=== PATIENT | female | born 1935 | race Caucasian/White ===

== ENCOUNTER → 2018-01-03 | Outpatient (CLI) | payer MEDICARE ==
[~2018-01-03] MED LIST: ALPRAZOLAM0.25 MG PO; AMBIEN10 MG PO; CARAFATE1 GM PO; CLONIDINE HCL0.1 MG PO; FLAGYL500 MG PO; LORAZEPAM2 MG PO; METOCLOPRAMIDE H5 MG PO; ULTRACET TABLE1 EACH PO; VITAMIN B COMPLEX; Z.0.FLAGYL500 MG PO; Z.0.LISINOPRIL20 MG PO; Z.0.NEXIUM40 MG PO; ZOFRAN ODT4 MG PO
--- NOTE | 2018-01-03 16:36 | Diagnostic Imaging Report ---
PROCEDURE:X-RAY RIGHT SHOULDER, COMPLETE COMPARISON:None. INDICATIONS:FALL, SATUR RIGHT SHOULDER PAIN FINDINGS: Mild osteopenia. No acute, displaced fracture or dislocation. No lytic or blastic lesion. No a.c. separation. Degenerative changes in the acromioclavicular joint. Glenohumeral joint is grossly unremarkable. Soft tissues are unremarkable. CONCLUSION: No acute abnormalities. Jacob Kim M.D. Dictated by: Jacob Kim M.D. on 01/03/2018 at 16:37 Electronically approved by: Jacob Kim M.D. on 01/03/2018 at 16:37
--- NOTE | 2018-01-03 16:40 | Diagnostic Imaging Report ---
Exams: Head and maxilla facial CTs without IV contrast History: Trauma, fall, hit head Comparison studies: None Technique: Axial images were obtained to the vertex and maxillofacial region. Coronal and sagittal images reconstructed from the axial data. Intravenous contrast: None Findings: Scalp: Small left paramedian frontal scalp hematoma. Bones: No fractures, blastic or lytic lesions. Brain sulci: Mildly prominent. Ventricles: Mild compensatory dilatation. No hydrocephalus. Parenchyma: No mass, acute hemorrhage or acute or chronic cortical vascular insults. Subtle hypodensities in the supratentorial white matter are compatible with chronic small vessel ischemic changes. Sellar/suprasellar region: No abnormalities Craniocervical junction: Patent foramen magnum. No Chiari one malformation. Maxillofacial CT: Soft tissues: No abnormalities. Bones: No fractures or bony abnormalities. Orbits: Intraocular lens replacements related to previous cataract surgery. Globes intact. No intraconal or extraconal abnormalities. Paranasal sinuses: Small nonobstructing retention cysts in the right maxillary sinus. Included cervical spine: Moderately degenerated C5-C6 and C6-C7 discs. Likely canal degree of canal stenosis at C6-C7 due to disc osteophyte complex which indents the thecal sac (cannot further evaluate as the canal is outside the imaged [id number] on this exam). Multilevel facet arthrosis. Moderate foraminal stenosis on the right at C3-C4 and at C4-C5 due to uncovertebral facet arthrosis. Incidental findings: Atherosclerotic calcifications in the carotid siphons and intradural vertebral arteries. IMPRESSION: Head CT: 1. Small left frontal scalp hematoma without underlying fracture. 2. No acute intracranial abnormalities. 3. Mild generalized volume loss. 4. Mild chronic microvascular ischemic changes. Maxillofacial CT: 1. Small left frontal scalp hematoma as above. 2. No maxillofacial fractures. 3. Degenerative changes in the imaged cervical spine. Signed by: Dr. Toribio Lai M.D. on 01/03/2018 4:37 PM
== END ==
LOC: CT 15:13
PROVIDERS: ATTEND Internal Medicine
DX: S09.93XA Unspecified injury of face, initial encounter (principal); M25.511 Pain in right shoulder; W19.XXXA Unspecified fall, initial encounter
CPT/HCPCS: 70450; 70486

== ENCOUNTER 2019-06-23 05:40 | Observation (INO) | payer MEDICARE ==
[2019-06-20 15:50] LABS: BASOPHILS # (AUTO) 0.1 (0.0-0.1); BASOPHILS % 0.5 % (0.0-1.0); EOSINOPHILS # (AUTO) 0.1 (0.0-0.4); EOSINOPHILS % 0.9 % (0.0-6.0); HEMATOCRIT 47.7 % (34.2-44.1); HEMOGLOBIN 16.1 g/dL (12.0-16.0); LYMPHOCYTES # (AUTO) 3.1 (1.0-3.2); LYMPHOCYTES % 23.3 % (18.0-39.1); MEAN CORPUSCULAR HEMOGLOBIN 29.8 pg (28-32); MEAN CORPUSCULAR HGB CONC 33.8 g/dL (31-35); MEAN CORPUSCULAR VOLUME 88.3 fL (81-99); MONOCYTES # (AUTO) 0.8 (0.2-0.8); MONOCYTES % 5.9 % (4.4-11.3); NEUTROPHILS # (AUTO) 9.2 (2.1-6.9); NEUTROPHILS % 68.9 % (38.7-80.0); PLATELET COUNT 264 x10e3/uL (140-360); RED CELL DISTRIBUTION WIDTH 13.3 % (11.7-14.4)
--- NOTE | 2019-06-20 16:00 | Diagnostic Imaging Report ---
EXAMINATION: CHEST 2 VIEWS INDICATION: Pre-operative COMPARISON: None FINDINGS: LINES/TUBES:None LUNGS:The lungs are moderately inflated. No focal consolidation or pulmonary edema. 7 mm nodular opacity over the right midlung zone may represent a pulmonary nodule. PLEURA:No pleural effusion or pneumothorax. MEDIASTINUM:The cardiomediastinal silhouette appears normal in size and shape. Atherosclerotic calcifications of the thoracic aorta. BONES/SOFT TISSUES:No acute osseous injury. ABDOMEN:No free air under the diaphragm. IMPRESSION: No focal pneumonia or pulmonary edema. Chest CT is recommended on a nonurgent basis to further evaluate pulmonary nodule. Signed by: Linda Marc MD on 06/20/2019 3:57 PM
[~2019-06-23] VITALS: Ht 167.6 cm; Wt 78.5 kg
[~2019-06-23 05:40] MED LIST changes: +CYMBALTA30 MG PO; +DICYCLOMINE HCL20 MG PO; +FISH OIL 1,0001 EAC2 PO; +VITAMIN B-121000 MC2 IM; +VITAMIN D35000 UNIT PO
--- OUTSIDE RECORDS SUMMARY | 2019-06-23 05:48 | XMS REPORT ---
Author Author [facility] Address Unknown Phone Unavailable Care Team Providers Care Community Administrator Name Role Phone BILLY LYNN Unavailable Unavailable ALESSANDRA MONTES Unavailable Unavailable Problems This patient has no known problems. Allergies, Adverse Reactions, Alerts This patient has no known allergies or adverse reactions. Medications This patient has no known medications. Results Test Description Test Time Test Comments Text Results Atomic Results Result Comments CHEST 2 VIEWS 2019-06-20 15:55:00 [place] [address] Patient Name: ENEIDA WALTON MR #: [id number] : 1935 Age/Sex: 83/F Req #: [id number] [facility] Physician: Ordered by: BILLY LYNN MD Report #: [id number] Location: OR Room/Bed: Procedure: [id number] DX/CHEST 2 VIEWS Exam Date: 06/20/19 Exam Time: 1515 REPORT STATUS: Signed EXAMINATION: CHEST 2 VIEWS INDICATION: Pre-operative COMPARISON: None FINDINGS: LINES/TUBES:None LUNGS:The lungs are moderately inflated. No focal consolidation or pulmonary edema. 7 mm nodular opacity over the right midlung zone may represent a pulmonary nodule. PLEURA:No pleural effusion or pneumothorax. MEDIASTINUM:The cardiomediastinal silhouette appears normal in size and shape. Atherosclerotic calcifications of the thoracic aorta. BONES/SOFT TISSUES:No acute osseous injury. ABDOMEN:No free air under the diaphragm. IMPRESSION: No focal pneumonia or pulmonary edema. Chest CT is recommended on a nonurgent basis to further evaluate pulmonary nodule. Signed by: Damian Daily MD on 06/20/2019 3:57 PM Dictated By: DAMIAN DAILY MD 56 Transcribed By: ALEX on 06/20/191556 COPY TO: BILLY LYNN MD CT BRAIN WO [place] [address] Patient Name: ENEIDA WALTON MR #: [id number] : 1935 Age/Sex: 82/F Req #: [id number] Adm Physician: Ordered by: ALESSANDRA MONTES MD Report #: [id number] Location: CT Room/Bed: Procedure: [id number] CT/CT BRAIN WO Exam Date: 01/03/18 Exam Time: 1550 REPORT STATUS: Signed Exams: Head and maxilla facial CTs without IV contrast History: Trauma, fall, hit head Comparison studies: None Technique: Axial images were obtained to the vertex and maxillofacial region. Coronal and sagittal images reconstructed from the axial data. Intravenous contrast: None Findings: Scalp: Small left paramedian frontal scalp hematoma. Bones: No fractures, blastic or lytic lesions. Brain sulci: Mildly prominent. Ventricles: Mild compensatory dilatation. No hydrocephalus. Parenchyma: No mass, acute hemorrhage or acute or chronic cortical vascular insults. Subtle hypodensities in the supratentorial white matter are compatible with chronic small vessel ischemic changes. Sellar/suprasellar region: No abnormalities Craniocervical junction: Patent foramen magnum. No Chiari one malformation. Maxillofacial CT: Soft tissues: No abnormalities. Bones: No fractures or bony abnormalities. Orbits: Intraocular lens replacements related to previous cataract surgery. Globes intact. No intraconal or extraconal abnormalities. Paranasal sinuses: Small nonobstructing retention cysts in the right maxillary sinus. Included cervical spine: Moderately degenerated C5-C6 and C6-C7 discs. Likely canal degree of canal stenosis at C6-C7 due to disc osteophyte complex which indents the thecal sac (cannot further evaluate as the canal is outside the imaged [id number] on this exam). Multilevel facet arthrosis. Moderate foraminal stenosis on the right at C3-C4 and at C4-C5 due to uncovertebral facet arthrosis. Incidental findings: Atherosclerotic calcifications in the carotid siphons and intradural vertebral arteries. IMPRESSION: Head CT: 1. Small left frontal scalp hematoma without underlying fracture. 2. No acute intracranial abnormalities. 3. Mild generalized volume loss. 4. Mild chronic microvascular ischemic changes. Maxillofacial CT: 1. Small left frontal scalp hematoma as above. 2. No maxillofacial fractures. 3. Degenerative changes in the imaged cervical spine. Signed by: Dr. Billy Lai M.D. on 01/03/2018 4:37 PM Dictated By: BILLY LAI MD 36 Transcribed By: ALEX on 01/03/181636 COPY TO: ALESSANDRA MONTES MD CT [facility]/[place] [address] Patient Name: ENEIDA WALTON MR #: [id number] : 1935 Age/Sex: 82/F Req #: [id number] Adm Physician: Ordered by: ALESSANDRA MONTES MD Report #: [id number] Location: CT Room/Bed: Procedure: [id number] CT/CT MAXIO FAC/PARANAS WO Exam Date: 01/03/18 Exam Time: 1550 REPORT STATUS: Signed Exams: Head and maxilla facial CTs without IV contrast History: Trauma, fall, hit head Comparison studies: None Technique: Axial images were obtained to the vertex and maxillofacial region. Coronal and sagittal images reconstructed from the axial data. Intravenous contrast: None Findings: Scalp: Small left paramedian frontal scalp hematoma. Bones: No fractures, blastic or lytic lesions. Brain sulci: Mildly prominent. Ventricles: Mild compensatory dilatation. No hydrocephalus. Parenchyma: No mass, acute hemorrhage or acute or chronic cortical vascular insults. Subtle hypodensities in the supratentorial white matter are compatible with chronic small vessel ischemic changes. Sellar/suprasellar region: No abnormalities Craniocervical junction: Patent foramen magnum. No Chiari one malformation. Maxillofacial CT: Soft tissues: No abnormalities. Bones: No fractures or bony abnormalities. Orbits: Intraocular lens replacements related to previous cataract surgery. Globes intact. No intraconal or extraconal abnormalities. Paranasal sinuses: Small nonobstructing retention cysts in the right maxillary sinus. Included cervical spine: Moderately degenerated C5-C6 and C6-C7 discs. Likely canal degree of canal stenosis at C6-C7 due to disc osteophyte complex which indents the thecal sac (cannot further evaluate as the canal is outside the imaged [id number] on this exam). Multilevel facet arthrosis. Moderate foraminal stenosis on the right at C3-C4 and at C4-C5 due to uncovertebral facet arthrosis. Incidental findings: Atherosclerotic calcifications in the carotid siphons and intradural vertebral arteries. IMPRESSION: Head CT: 1. Small left frontal scalp hematoma without underlying fracture. 2. No acute intracranial abnormalities. 3. Mild generalized volume loss. 4. Mild chronic microvascular ischemic changes. Maxillofacial CT: 1. Small left frontal scalp hematoma as above. 2. No maxillofacial fractures. 3. Degenerative changes in the imaged cervical spine. Signed by: Dr. Billy Lai M.D. on 01/03/2018 4:37 PM Dictated By: BILLY LAI MD 1544 Transcribed By: ALEX on 01/03/18 9357 COPY TO: ALESSANDRA MONTES MD [facility] [address] [place] [address] Patient Name: ENEIDA WALTON MR #: [id number] : 1935 Age/Sex: 82/F Req #: [id number] Adm Physician: Ordered by: ALESSANDRA MONTES MD Report #: [id number] Location: CT Room/Bed: Procedure: [id number] DX/SHOULDER RIGHT COMPLETE Exam Date: 01/03/18 Exam Time: 1550 REPORT STATUS: Signed PROCEDURE: X-RAY RIGHT SHOULDER, COMPLETE COMPARISON: None. INDICATIONS: FALL, SUNDAY RIGHT SHOULDER PAIN FINDINGS: Mild osteopenia. No acute, displaced fracture or dislocation. No lytic or blastic lesion. No a.c. separation. Degenerative changes in the acromioclavicular joint. Glenohumeral joint is grossly unremarkable. Soft tissues are unremarkable. CONCLUSION: No acute abnormalities. Tunde Kim M.D. Dictated by: Tunde Kim M.D. on 01/03/2018 at 16:37 Electronically approved by: Tunde Kim M.D. on 01/03/2018 at 16:37 Dictated By: TUNDE KIM MD Transcribed By: DAWNA on 01/03/18 1637 COPY TO: ALESSANDRA MONTES MD
[2019-06-23] MEDS ORDERED: VANCOMYCIN HCL 1,000 MG ONE (06:36)
[2019-06-23] MEDS ORDERED: SODIUM CHLORIDE 0.9% 250ML 250 ML ONE (06:37)
[2019-06-23] MEDS ORDERED: BACITRACIN 50,000 UNIT VIAL ONE (06:37)
[2019-06-23] MEDS ORDERED: TRANEXAMIC ACID 1,000 MG/10 ML ML ONE (06:37)
[2019-06-23] MEDS ORDERED: DEXAMETHASONE SOD PHOS 10 MG/1 ML VIAL ONE (06:53)
[2019-06-23] MEDS ORDERED: GABAPENTIN 300 MG CAP ONE (06:53)
[2019-06-23] MEDS ORDERED: CEFAZOLIN SOD 1 GM/NS 50ML 100 ML IV ONE (06:53)
[2019-06-23] MEDS ORDERED: CELECOXIB 200 MG CAP ONE (06:53)
[2019-06-23 07:02] LABS: BASOPHILS # (AUTO) 0.1 (0.0-0.1); BASOPHILS % 0.7 % (0.0-1.0); EOSINOPHILS # (AUTO) 0.1 (0.0-0.4); EOSINOPHILS % 1.2 % (0.0-6.0); LYMPHOCYTES # (AUTO) 3.3 (1.0-3.2); LYMPHOCYTES % 28.2 % (18.0-39.1); MONOCYTES # (AUTO) 0.8 (0.2-0.8); MONOCYTES % 7.1 % (4.4-11.3); NEUTROPHILS # (AUTO) 7.4 (2.1-6.9); NEUTROPHILS % 62.4 % (38.7-80.0); PLATELET COUNT 247 x10e3/uL (140-360); RED BLOOD COUNT 5.34 x10e6/uL (3.6-5.1); RED CELL DISTRIBUTION WIDTH 13.4 % (11.7-14.4)
[2019-06-23] MEDS ORDERED: ROPIVACAINE 246.25 MG, EPINEPHRINE HCL 1:1000 1ML 0.5 MG, CLONIDINE HCL 0.08 MG, KETORO... INJ ONE ×5 (07:30)
[2019-06-23] MEDS ORDERED: ACETAMINOPHEN 650 MG SUPP PR PRN (09:15)
[2019-06-23] MEDS ORDERED: ONDANSETRON HCL INJ 2MG/ML 2ML 2 MG/ML VIAL IV PRN (09:15)
[2019-06-23] MEDS ORDERED: ZOLPIDEM TARTRATE 5 MG TAB PO PRN (09:15)
[2019-06-23] MEDS ORDERED: DIPHENHYDRAMINE HCL INJ 50 MG/ML VIAL IM/IV PRN (09:15)
[2019-06-23] MEDS ORDERED: DOCUSATE SODIUM 100 MG CAP PO PRN (09:15)
[2019-06-23] MEDS ORDERED: PROMETHAZINE HCL (IM) 25 MG/ML VIAL INJ PRN (09:15)
[2019-06-23] MEDS ORDERED: HYDROCODONE/APAP 7.5MG-325MG 1 EA TAB PO PRN (09:15)
[2019-06-23] MEDS ORDERED: HYDROCODONE/APAP 5MG-325MG TAB PO PRN (09:15)
[2019-06-23] MEDS ORDERED: HYDRALAZINE HCL 20 MG/ML VIAL ONE (09:28)
[2019-06-23] MEDS ORDERED: METOCLOPRAMIDE HCL 10 MG/2ML VIAL ONE (09:44)
[2019-06-23] MEDS ORDERED: ONDANSETRON HCL INJ 2MG/ML 2ML 2 MG/ML VIAL ONE ×2 (09:44→19:32)
--- NOTE | 2019-06-23 09:51 | Operative Report ---
DATE OF PROCEDURE: 06/23/2019 SURGEON: Toribio Duke MD [employer]: Alexandr Pascal, certified PA. PREOPERATIVE DIAGNOSIS: Osteoarthritis, left knee. POSTOPERATIVE DIAGNOSIS: Osteoarthritis, left knee. PROCEDURE: Left total knee arthroplasty. INDICATIONS: The patient is an 83-year-old lady with advanced osteoarthritis of her left knee. She has failed conservative management and would like to proceed with a left total knee replacement. The risks and benefits have been explained in detail. The hospital stay, implants, and recovery have all been explained. She states she understands and wishes to proceed. PROCEDURE IN DETAIL: The patient was brought to the operating room and placed under general anesthetic. She received prophylactic antibiotics, tranexamic acid, and a regional block in the holding area. Her left lower extremity was prepped and draped in a sterile manner. A preoperative time-out was performed. The extremity was exsanguinated and a proximal tourniquet was inflated to 300 mmHg. An anterior approach with a medial parapatellar arthrotomy was performed. Slightly blood-tinged synovial fluid was removed from the joint. Soft tissue releases were performed to bring the knee up into flexion with the patella everted. Meniscal remnants and marginal osteophytes were removed. The cruciate ligaments were sacrificed. A [employer] posterior stabilized knee system were used. An extramedullary cutting guide was used to resect the proximal tibia. The tibial base plate was noted to be a size #3. The central fin punch was impacted and attention was directed towards the distal femur. An intramedullary cutting guide was used to resect the distal femur in 5 degrees of valgus and rotation referencing off a combination of landmarks including Whitesides line, the epicondylar axis, and the posterior condyles. The femoral component was a size #4. We also elected to use the narrow option. The anterior and posterior cuts were made. Trial reductions were performed. A 9 mm ultracongruent tibial insert provided appropriate soft tissue balancing in flexion and full extension. The patella was resurfaced with a 29 mm x 7.5 mm patellar button. The thickness was checked before and after was right around 20 mm. Patellar tracking was concentric. The trial implants were then all removed. The knee was thoroughly irrigated with a shower tip pulsatile lavage. Bone cuts had been irrigated with a spray mixture of diluted polymyxin and vancomycin spray. A 100 mL premixed pericapsular DANIELA injection was placed into the surrounding soft tissue. The components were cemented into place using a single mix of Palacos cement preloaded with antibiotics. Care was taken to remove extravasated cement. The wound was further irrigated while the cement cured. The arthrotomy was then closed with interrupted #1 Ethibond. The skin was closed with subcuticular Vicryl and cele. A sterile Aquacel bandage was applied. The patient was extubated and transported to the recovery room in stable condition. Blood loss was minimal. All needle and sponge counts were correct. Toribio Duke MD DR/REBECA /[id number]
--- NOTE | 2019-06-23 10:21 | Diagnostic Imaging Report ---
EXAMINATION: KNEE LEFT 1-2 VIEWS INDICATION: Postoperative COMPARISON: None FINDINGS: AP and lateral portable radiographs of the left knee demonstrate immediate postoperative findings of left total knee replacement. Alignment is anatomic. No unexpected fracture. Postoperative subcutaneous emphysema. Surgical skin cele in place. Atherosclerotic vascular calcifications. IMPRESSION: Anatomic alignment status post left total knee replacement. Signed by: Linda Marc MD on 06/23/2019 10:18 AM
[2019-06-23] MEDS ORDERED: ACETAMINOPHEN 1000 MG/100 ML IV SCH (12:00)
[2019-06-23] MEDS: SODIUM CHLORIDE 0.9% 1000ML 1,000 ML IV SCH ×2 (13:05→21:38)
[2019-06-23 13:24] VITALS: BP 165/74
[2019-06-23] MEDS: KETOROLAC TROMETHAMINE 30 MG/ML VIAL IV PRN ×2 (14:23→23:34)
--- NOTE | 2019-06-23 15:04 | NUR ---
DR DAO OFFICE PREARRANGED FOLLOWING DISCHARGE PLAN OF: HOME TO [address] , [facility] [address] PHONE NUMBER [phone] [facility] CONFIRMED WITH DICK [phone] MICHELE 3 IN ONE COMMODE. CPM AND ROLLING WALKER WITH WHEELS. PROVIDED BY [employer] TO BE DELIVERED 06/24/19 BEFORE 10 AM PER ROXANNE [phone]
[2019-06-23] MEDS ORDERED: ROPIVACAINE 0.5% 5 MG/ML 30 ML SDV ONE (15:16)
[2019-06-23] MEDS ORDERED: LIDOCAINE HCL 2% LOCAL 20 ML VIAL ONE (15:16)
[2019-06-23 16:10] VITALS: BP 112/65
[2019-06-23 16:52] VITALS: BP 112/65
[2019-06-23 17:24] VITALS: BP 112/65
[2019-06-23] MEDS: CEFAZOLIN SOD 1 GM/NS 50ML 50 ML IV SCH (17:34)
[2019-06-23] MEDS: CELECOXIB 200 MG CAP PO SCH (17:34)
[2019-06-23] MEDS: ASPIRIN 325 MG TAB PO SCH (17:34)
[2019-06-23] MEDS ORDERED: MIDAZOLAM HCL 2 MG/2 ML VIAL ONE (18:03)
[2019-06-23] MEDS ORDERED: FENTANYL CITRATE/PF 100MCG/2 ML INJ ONE (18:03)
--- NOTE | 2019-06-23 19:00 | NUR ---
received report from day nurse. patient is resting comfortably in bed. bed is in lowest position and call lacy is within reach. will continue to monitor patient.
[2019-06-23] MEDS ORDERED: ACETAMINOPHEN 1000 MG/100 ML IV ONE (19:32)
[2019-06-23] MEDS ORDERED: LIDOCAINE HCL 2% LOCAL INJ 5 ML SDV VIAL INJ ONE (19:32)
[2019-06-23] MEDS ORDERED: PROPOFOL IV EMULSION 10 MG/ML 20 ML VIAL ONE (19:32)
[2019-06-23] MEDS ORDERED: SEVOFLURANE INHAL SOLN 250 ML PEN BTL ONE (19:32)
[2019-06-23 20:00] VITALS: BP 153/71
[2019-06-23 20:30] VITALS: BP 160/75
[2019-06-23] MEDS: ACETAMINOPHEN 1000 MG/100 ML IV SCH (21:38)
[2019-06-24] VITALS: BP 140/72
[2019-06-24] MEDS: CEFAZOLIN SOD 1 GM/NS 50ML 50 ML IV SCH ×2 (00:30→07:52)
--- NOTE | 2019-06-24 01:40 | History and Physical ---
HISTORY OF PRESENT ILLNESS: The patient is an 83-year-old female with history of bilateral knee pain. The patient comes in with left knee pain and is status post left knee replacement. PAST MEDICAL HISTORY: History of hypertension. SOCIAL HISTORY: No history of alcohol. No tobacco use. FAMILY HISTORY: Nonsignificant. CURRENT MEDICATIONS: Include alprazolam, Cymbalta, and lisinopril 20 mg. ALLERGIES: TO CODEINE. REVIEW OF SYSTEMS: Negative for chest pain after surgery. No shortness of breath after surgery. No nausea, vomiting, or diarrhea. No constipation. No rectal bleeding. HOME MEDICATIONS: Include esomeprazole and omega-3 fatty acids too. PHYSICAL EXAMINATION: GENERAL: The patient is alert and oriented x3. HEENT: Normocephalic, atraumatic. Pupils reactive to light and accommodation. CVS: S1 and S2 normal. Regular rate and rhythm. ABDOMEN: Nontender, nondistended status post knee arthroplasty. Wound, clean and dry, bandaged. EXTREMITIES: No edema. LAB[place]ATORY [place]: [place] [address] [address]. Hemoglobin of 16, hematocrit of 47.7, has trended down. Labs are pending for tomorrow. PLAN: Continue with antihypertensive. Continue with anti-anxiety medication and also duloxetine. We will continue to monitor the patient's H and H and also her blood pressures. For further information, look into the chart. We will monitor the patient and possible discharge depending on Dr. Duke. MD LUPILLO Collazo/MODL /[id number]
[2019-06-24] MEDS: SODIUM CHLORIDE 0.9% 1000ML 1,000 ML IV SCH (02:30)
[2019-06-24 04:00] VITALS: BP 192/71
[2019-06-24] MEDS: ACETAMINOPHEN 1000 MG/100 ML IV SCH ×2 (04:25→08:30)
[2019-06-24 06:06] LABS: HEMATOCRIT 36.9 % (34.2-44.1); HEMOGLOBIN 12.1 g/dL (12.0-16.0)
[2019-06-24] MEDS ORDERED: ALPRAZOLAM 0.5 MG TAB PO PRN (07:15)
--- NOTE | 2019-06-24 07:15 | NUR ---
report given to day nurse. patient is resting comfortably in bed. bed is in lowest position and call lacy is within reach.
[2019-06-24 08:30] VITALS: BP 150/72
[2019-06-24] MEDS: CELECOXIB 200 MG CAP PO SCH (08:30)
[2019-06-24] MEDS: ASPIRIN 325 MG TAB PO SCH (08:30)
[2019-06-24] MEDS: KETOROLAC TROMETHAMINE 30 MG/ML VIAL IV PRN (08:35)
[2019-06-24] MEDS ORDERED: DULOXETINE HCL 30 MG DELAYED RELEASE PO SCH (09:00)
[2019-06-24] MEDS ORDERED: DICYCLOMINE HCL 20 MG TAB PO SCH (09:00)
[2019-06-24] MEDS ORDERED: LISINOPRIL 20 MG TAB PO SCH (09:00)
[2019-06-24] MEDS ORDERED: ACETAMINOPHEN 1000 MG/100 ML IV PRN (09:15)
[2019-06-24 09:47] VITALS: BP 150/72
--- NOTE | 2019-06-24 10:56 | Progress Note ---
DATE: SUBJECTIVE: The patient is status post left knee replacement. The patient is stable, complains of some tremors, but she is out of her anxiety medicine, her alprazolam will be reinstituted. The patient has no chest pain. No shortness of breath. No nausea, vomiting, or diarrhea. MEDICATIONS: The patient is on: 1. Cefazolin. 2. Ketorolac as needed. 3. Celebrex. 4. Aspirin. 5. Promethazine as needed. 6. Hydrocodone as needed. OBJECTIVE: VITAL SIGNS: Temperature is 97.3, respirations of 19, and blood pressure is 192/71, has been running in the 140 range. HEENT: Normocephalic and atraumatic. Pupils reactive to light and accommodation. CVS: S1 and S2 normal. Regular rate and rhythm. ABDOMEN: Nontender and nondistended. EXTREMITIES: Left lower extremity in bandage in a CPM machine and the patient is on room air and saturating at 95%. LABORATORY VALUES: H and H 16 and 47 yesterday's and today's are 12.1 and 36.9. Other labs are within normal limits. ASSESSMENT AND PLAN: An 83-year-old female with left knee replacement. The patient is doing well. Continue with postop care. Restart home medications. Further recommendation as per Orthopedics. MD LUPILLO Collazo/MEGHANL /[id number]
--- NOTE | 2019-06-24 11:40 | NUR ---
CAROL EXPLAINED TO PATIENT, PT SIGNED, PLACED IN CHART. COPY PLACED IN CARE TRANSITIONS FOLDER
[2019-06-24] MEDS ORDERED: ONDANSETRON HCL 4 MG ORAL DISINTEGRATING TAB PO PRN (14:00)
--- NOTE | 2019-06-24 14:00 | NUR ---
patient alert and oriented with at bedside. discharge instructions given at this time, both verbalized understanding. IV discontinued, catheter in tact and small dressing applied. patient to be wheeled out to personal auto for to drive home.
[2019-06-24] MEDS ORDERED: PANTOPRAZOLE SOD 40 MG TABEC PO SCH (21:00)
== END 2019-06-24 14:14 | disposition home health service (06) ==
LOC: OR 05:40 → PACU V 09:09 → MED/SURG 12:06
PROVIDERS: ADMIT Specialist; ATTEND Specialist
DX: M17.12 Unilateral primary osteoarthritis, left knee (principal); K21.9 Gastro-esophageal reflux disease without esophagitis; I10 Essential (primary) hypertension; E78.00 Pure hypercholesterolemia, unspecified; Z79.82 Long term (current) use of aspirin; Z88.5 Allergy status to narcotic agent; Z01.812 Encounter for preprocedural laboratory examination
CPT/HCPCS: 27447; 36415 ×3; 71046; 73560; 85014; 85018; 85025 ×2; 86850; 86900; 86920; 97116 ×2; 97161; C1713; G0378 ×2; J0131 ×2; J0171; J0360; J0690 ×2; J1100; J1885 ×2; J2001 ×2; J2250; J2405; J2704; J2765; J2795; J3010; J3370; J7030; J7050

== ENCOUNTER → 2019-08-26 | Outpatient (CLI) | payer MEDICARE ==
--- NOTE | 2019-08-27 08:10 | Diagnostic Imaging Report ---
CT of the chest, without contrast. History: Pulmonary nodule noted on prior chest radiograph. Comparison: Chest radiograph from 06/23/2019. Technique: Multidetector CT scanning of the chest was performed from the level of the apices to the upper abdomen without contrast. Coronal and sagittal multiplanar reformations were obtained. RADIATION DOSE: Total DLP: 465.03 mGy*cm Dose modulation, iterative reconstruction, and/or weight based adjustment of the mA/kV was utilized to reduce the radiation dose to as low as reasonably achievable. FINDINGS: The thyroid and remaining visualized structures within the base demonstrate no significant abnormalities. The thoracic aorta is normal course and caliber with atherosclerotic calcification within its course and branch vessels including the coronary arteries. The heart is not enlarged. There is no abnormal pericardial fluid present. There is no abnormal axillary, mediastinal, or hilar lymph node enlargement. The trachea and proximal airways are patent. Mild right apical scarring noted. A 4 mm pulmonary nodule is identified on the periphery of the right upper lobe (axial image 30-31). Subsegmental atelectasis is also noted within the right upper lobe. There is mild dependent density/atelectasis present bilaterally. There is no evidence for consolidation, pneumothorax, mass, or pleural effusion. A 3 cm cyst identified within the superior pole of the left kidney. The gallbladder is surgically absent. The remaining visualized intra-abdominal contents are grossly unremarkable. The osseous structures demonstrate degenerative changes without evidence for acute fracture or destructive process. The extraperitoneal soft tissues are unremarkable. IMPRESSION: 4 mm pulmonary nodule identified within the right upper lobe. In a low-risk patient, no follow-up is warranted. In a high-risk patient, consider [address] follow-up. Signed by: Dr. Case Mcgrath MD on 08/27/2019 8:07 AM
== END ==
LOC: CT 12:17
PROVIDERS: ATTEND Internal Medicine
DX: R91.1 Solitary pulmonary nodule (principal)
CPT/HCPCS: 71250

== ENCOUNTER 2020-09-20 11:05 | Inpatient (IN) | payer MEDICARE ==
[~2020-09-20] VITALS: Ht 157.5 cm; Wt 78.9 kg
[2020-09-20] MEDS ORDERED: ASPIRIN 81 MG CHEW TAB PO ONE ×2 (11:15→13:00)
[2020-09-20 11:46] LABS: BASOPHILS # (AUTO) 0.1 (0.0-0.1); BASOPHILS % 0.8 % (0.0-1.0); EOSINOPHILS # (AUTO) 0.1 (0.0-0.4); EOSINOPHILS % 0.4 % (0.0-6.0); HEMATOCRIT 48.8 % (34.2-44.1); HEMOGLOBIN 15.9 g/dL (12.0-16.0); LYMPHOCYTES # (AUTO) 1.7 (1.0-3.2); LYMPHOCYTES % 11.2 % (18.0-39.1); MEAN CORPUSCULAR HEMOGLOBIN 29.6 pg (28-32); MEAN CORPUSCULAR HGB CONC 32.6 g/dL (31-35); MEAN CORPUSCULAR VOLUME 90.7 fL (81-99); MONOCYTES # (AUTO) 0.7 (0.2-0.8); MONOCYTES % 4.8 % (4.4-11.3); NEUTROPHILS # (AUTO) 12.7 (2.1-6.9); NEUTROPHILS % 82.1 % (38.7-80.0); PLATELET COUNT 322 x10e3/uL (140-360); RED BLOOD COUNT 5.38 x10e6/uL (3.6-5.1); RED CELL DISTRIBUTION WIDTH 14.8 % (11.7-14.4)
[2020-09-20 12:15] LABS: ALBUMIN 3.9 g/dL (3.5-5.0); ALBUMIN/GLOBULIN RATIO 1.1 (0.8-2.0); ANION GAP 16.9 mmol/L (8-16); CALCIUM 9.5 mg/dL (8.4-10.2); CREATININE, SERUM 1.34 mg/dL (0.57-1.11); POTASSIUM 3.9 mmol/L (3.5-5.1)
[2020-09-20] MEDS ORDERED: CEFEPIME 1GM/NS 0.9% 50 ML 50 ML IV STA (12:45)
[2020-09-20] MEDS: FUROSEMIDE INJ 10 MG/ML 4 ML VIAL IV SCH (13:36)
[2020-09-20 13:45] LABS: CREATINE KINASE MB 1.9 ng/mL (0-5.0)
[2020-09-20 22:17] VITALS: BP 155/105
[2020-09-20 23:55] VITALS: BP 155/105
[2020-09-21] VITALS (8 sets, daily range): BP systolic 125–148; BP diastolic 72–102
[2020-09-21] MEDS ORDERED: ALBUTEROL0.63 MG/3 IH (00:20)
[2020-09-21] MEDS ORDERED: ALPRAZOLAM0.5 M1 (00:20)
[2020-09-21] MEDS ORDERED: ZEGERID 40 MG1 EACH (00:20)
[2020-09-21 06:37] LABS: CREATINE KINASE MB 1.7 ng/mL (0-5.0)
[2020-09-21 07:10] LABS: BASOPHILS # (AUTO) 0.1 (0.0-0.1); BASOPHILS % 0.8 % (0.0-1.0); EOSINOPHILS # (AUTO) 0.2 (0.0-0.4); EOSINOPHILS % 1.9 % (0.0-6.0); HEMATOCRIT 48.7 % (34.2-44.1); HEMOGLOBIN 16.2 g/dL (12.0-16.0); LYMPHOCYTES % 17.6 % (18.0-39.1); MEAN CORPUSCULAR HEMOGLOBIN 30.3 pg (28-32); MEAN CORPUSCULAR HGB CONC 33.3 g/dL (31-35); MEAN CORPUSCULAR VOLUME 91.2 fL (81-99); MONOCYTES # (AUTO) 0.9 (0.2-0.8); MONOCYTES % 7.7 % (4.4-11.3); NEUTROPHILS # (AUTO) 8.2 (2.1-6.9); NEUTROPHILS % 71.5 % (38.7-80.0); PLATELET COUNT 271 x10e3/uL (140-360); RED BLOOD COUNT 5.34 x10e6/uL (3.6-5.1); RED CELL DISTRIBUTION WIDTH 15.1 % (11.7-14.4)
[2020-09-21 07:11] LABS: ALBUMIN 3.8 g/dL (3.5-5.0); ALBUMIN/GLOBULIN RATIO 1.2 (0.8-2.0); ALKALINE PHOSPHATASE 78 IU/L (40-150); ANION GAP 14.8 mmol/L (8-16); BLOOD UREA NITROGEN 16 mg/dL (7-26); BUN/CREATININE RATIO 14 (6-25); CALCIUM 9.1 mg/dL (8.4-10.2); CARBON DIOXIDE 25 mmol/L (22-29); CHLORIDE 105 mmol/L (98-107); CREATININE, SERUM 1.12 mg/dL (0.57-1.11); EST GLOMERULAR FILTRATION RATE 46 ML/MIN (60-); GLUCOSE 131 mg/dL (74-118); MAGNESIUM 1.5 MG/DL (1.3-2.1); POTASSIUM 3.8 mmol/L (3.5-5.1); SODIUM 141 mmol/L (136-145)
[2020-09-21 07:36] LABS: ALANINE AMINOTRANSFERASE < 6 IU/L (0-55)
[2020-09-21] MEDS: FUROSEMIDE INJ 10 MG/ML 4 ML VIAL IV SCH ×2 (07:58→17:54)
[2020-09-21] MEDS: LISINOPRIL 20 MG TAB PO SCH ×2 (07:58→17:54)
[2020-09-21] MEDS: ALPRAZOLAM 0.5 MG TAB PO PRN ×2 (17:54→22:01)
[2020-09-22] VITALS (10 sets, daily range): BP systolic 101–151; BP diastolic 70–88
[2020-09-22 06:46] LABS: BASOPHILS # (AUTO) 0.1 (0.0-0.1); BASOPHILS % 0.7 % (0.0-1.0); EOSINOPHILS # (AUTO) 0.2 (0.0-0.4); EOSINOPHILS % 1.3 % (0.0-6.0); HEMATOCRIT 49.6 % (34.2-44.1); HEMOGLOBIN 16.4 g/dL (12.0-16.0); LYMPHOCYTES # (AUTO) 1.8 (1.0-3.2); LYMPHOCYTES % 15.1 % (18.0-39.1); MEAN CORPUSCULAR HEMOGLOBIN 30.2 pg (28-32); MEAN CORPUSCULAR HGB CONC 33.1 g/dL (31-35); MEAN CORPUSCULAR VOLUME 91.3 fL (81-99); MONOCYTES # (AUTO) 1.1 (0.2-0.8); MONOCYTES % 8.9 % (4.4-11.3); NEUTROPHILS % 73.6 % (38.7-80.0); PLATELET COUNT 268 x10e3/uL (140-360); RED BLOOD COUNT 5.43 x10e6/uL (3.6-5.1); RED CELL DISTRIBUTION WIDTH 14.8 % (11.7-14.4)
[2020-09-22 07:28] LABS: ALBUMIN 3.7 g/dL (3.5-5.0); ALBUMIN/GLOBULIN RATIO 1.2 (0.8-2.0); ANION GAP 15.4 mmol/L (8-16); CALCIUM 9.1 mg/dL (8.4-10.2); CREATININE, SERUM 1.28 mg/dL (0.57-1.11); MAGNESIUM 1.6 MG/DL (1.3-2.1); POTASSIUM 3.4 mmol/L (3.5-5.1)
[2020-09-22] MEDS: FUROSEMIDE INJ 10 MG/ML 4 ML VIAL IV SCH ×2 (09:40→16:52)
[2020-09-22] MEDS: LISINOPRIL 20 MG TAB PO SCH ×2 (09:41→16:53)
[2020-09-22] MEDS: ALPRAZOLAM 0.5 MG TAB PO PRN ×3 (09:41→20:54)
[2020-09-22] MEDS: METOPROLOL TARTRATE 25 MG TAB PO SCH (20:53)
[2020-09-23] VITALS (9 sets, daily range): BP systolic 97–128; BP diastolic 68–96
[2020-09-23 06:24] LABS: BASOPHILS # (AUTO) 0.1 (0.0-0.1); BASOPHILS % 0.9 % (0.0-1.0); EOSINOPHILS # (AUTO) 0.3 (0.0-0.4); EOSINOPHILS % 2.3 % (0.0-6.0); HEMATOCRIT 47.5 % (34.2-44.1); HEMOGLOBIN 15.7 g/dL (12.0-16.0); LYMPHOCYTES # (AUTO) 2.5 (1.0-3.2); LYMPHOCYTES % 17.5 % (18.0-39.1); MEAN CORPUSCULAR HGB CONC 33.1 g/dL (31-35); MEAN CORPUSCULAR VOLUME 90.8 fL (81-99); MONOCYTES # (AUTO) 1.3 (0.2-0.8); MONOCYTES % 9.1 % (4.4-11.3); NEUTROPHILS # (AUTO) 9.8 (2.1-6.9); NEUTROPHILS % 69.6 % (38.7-80.0); PLATELET COUNT 305 x10e3/uL (140-360); RED BLOOD COUNT 5.23 x10e6/uL (3.6-5.1); RED CELL DISTRIBUTION WIDTH 14.7 % (11.7-14.4)
[2020-09-23 06:57] LABS: ALBUMIN 3.8 g/dL (3.5-5.0); ALBUMIN/GLOBULIN RATIO 1.2 (0.8-2.0); ANION GAP 18.5 mmol/L (8-16); CREATININE, SERUM 1.63 mg/dL (0.57-1.11); MAGNESIUM 1.6 MG/DL (1.3-2.1); POTASSIUM 3.5 mmol/L (3.5-5.1)
[2020-09-23] MEDS: FUROSEMIDE INJ 10 MG/ML 4 ML VIAL IV SCH ×2 (09:02→16:26)
[2020-09-23] MEDS: METOPROLOL TARTRATE 25 MG TAB PO SCH ×2 (09:02→21:00)
[2020-09-23] MEDS: LISINOPRIL 20 MG TAB PO SCH ×2 (09:03→16:26)
[2020-09-23] MEDS: ALPRAZOLAM 0.5 MG TAB PO PRN ×3 (09:03→20:56)
[2020-09-23 16:18] LABS: ANION GAP 14.6 mmol/L (8-16); CALCIUM 9.1 mg/dL (8.4-10.2); CREATININE, SERUM 1.83 mg/dL (0.57-1.11); POTASSIUM 3.6 mmol/L (3.5-5.1)
[2020-09-24] VITALS (13 sets, daily range): BP systolic 117–145; BP diastolic 60–98
[2020-09-24 06:28] LABS: BASOPHILS # (AUTO) 0.1 (0.0-0.1); BASOPHILS % 0.8 % (0.0-1.0); EOSINOPHILS # (AUTO) 0.3 (0.0-0.4); EOSINOPHILS % 2.7 % (0.0-6.0); HEMATOCRIT 48.9 % (34.2-44.1); HEMOGLOBIN 16.2 g/dL (12.0-16.0); LYMPHOCYTES # (AUTO) 2.3 (1.0-3.2); LYMPHOCYTES % 19.4 % (18.0-39.1); MEAN CORPUSCULAR HEMOGLOBIN 30.2 pg (28-32); MEAN CORPUSCULAR HGB CONC 33.1 g/dL (31-35); MEAN CORPUSCULAR VOLUME 91.1 fL (81-99); MONOCYTES # (AUTO) 1.2 (0.2-0.8); MONOCYTES % 10.3 % (4.4-11.3); NEUTROPHILS # (AUTO) 7.8 (2.1-6.9); NEUTROPHILS % 66.3 % (38.7-80.0); PLATELET COUNT 303 x10e3/uL (140-360); RED BLOOD COUNT 5.37 x10e6/uL (3.6-5.1); RED CELL DISTRIBUTION WIDTH 14.6 % (11.7-14.4)
[2020-09-24 06:52] LABS: ALBUMIN 3.8 g/dL (3.5-5.0); ALBUMIN/GLOBULIN RATIO 1.3 (0.8-2.0); ANION GAP 18.6 mmol/L (8-16); CALCIUM 9.2 mg/dL (8.4-10.2); CREATININE, SERUM 1.73 mg/dL (0.57-1.11); MAGNESIUM 1.7 MG/DL (1.3-2.1); POTASSIUM 3.6 mmol/L (3.5-5.1)
[2020-09-24] MEDS: LISINOPRIL 20 MG TAB PO SCH ×2 (09:00→16:49)
[2020-09-24] MEDS: METOPROLOL TARTRATE 25 MG TAB PO SCH ×2 (09:00→20:56)
[2020-09-24] MEDS ORDERED: MIDAZOLAM HCL 2 MG/2 ML VIAL ONE (12:34)
[2020-09-24] MEDS ORDERED: VERAPAMIL HCL 2.5 MG/ML 2 ML VIAL ONE (12:34)
[2020-09-24] MEDS ORDERED: HEPARIN SOD (PORCINE) 1000 UNIT/ML 30ML ONE (12:34)
[2020-09-24] MEDS ORDERED: IOPAMIDOL 370 MG/ML 200 ML INFUS..BTL INJ ONE (12:35)
[2020-09-24] MEDS ORDERED: NITROGLYCERIN/D5W 200 MCG/ML 250 ML ONE (12:35)
[2020-09-24] MEDS ORDERED: HEPARIN SOD/SOD CHLORIDE 2,000 ML ONE (12:35)
[2020-09-24] MEDS ORDERED: FENTANYL CITRATE/PF 100MCG/2 ML INJ ONE ×2 (12:35→14:48)
[2020-09-24] MEDS ORDERED: SODIUM CHLORIDE 0.9% 1000ML 1,000 ML ONE (12:35)
[2020-09-24] MEDS ORDERED: LIDOCAINE HCL 2% LOCAL 20 ML VIAL ONE (12:35)
[2020-09-24] MEDS ORDERED: PHENYLEPHRINE HCL 1% 10 MG/ML VIAL ONE (13:56)
[2020-09-24] MEDS ORDERED: ATROPINE SULFATE 0.1 MG/ML 10ML SYR ONE (13:59)
[2020-09-24] MEDS ORDERED: CLOPIDOGREL BISULFATE 75 MG TAB ONE (14:41)
[2020-09-24] MEDS ORDERED: ASPIRIN 325 MG TAB ONE (14:41)
[2020-09-24] MEDS: ALPRAZOLAM 0.5 MG TAB PO PRN (20:56)
[2020-09-25] VITALS: BP 126/106
[2020-09-25] MEDS: ALPRAZOLAM 0.5 MG TAB PO PRN (00:34)
[2020-09-25 04:00] VITALS: BP 139/75
[2020-09-25 06:11] LABS: BASOPHILS # (AUTO) 0.1 (0.0-0.1); BASOPHILS % 0.9 % (0.0-1.0); EOSINOPHILS # (AUTO) 0.2 (0.0-0.4); EOSINOPHILS % 1.6 % (0.0-6.0); HEMATOCRIT 48.2 % (34.2-44.1); HEMOGLOBIN 16.1 g/dL (12.0-16.0); LYMPHOCYTES # (AUTO) 1.4 (1.0-3.2); MEAN CORPUSCULAR HEMOGLOBIN 30.3 pg (28-32); MEAN CORPUSCULAR HGB CONC 33.4 g/dL (31-35); MEAN CORPUSCULAR VOLUME 90.8 fL (81-99); MONOCYTES % 8.7 % (4.4-11.3); NEUTROPHILS # (AUTO) 8.8 (2.1-6.9); NEUTROPHILS % 76.3 % (38.7-80.0); PLATELET COUNT 250 x10e3/uL (140-360); RED BLOOD COUNT 5.31 x10e6/uL (3.6-5.1); RED CELL DISTRIBUTION WIDTH 14.7 % (11.7-14.4)
[2020-09-25 06:32] LABS: ALBUMIN 3.6 g/dL (3.5-5.0); ALBUMIN/GLOBULIN RATIO 1.2 (0.8-2.0); ANION GAP 18.8 mmol/L (8-16); CALCIUM 9.2 mg/dL (8.4-10.2); CREATININE, SERUM 1.48 mg/dL (0.57-1.11); MAGNESIUM 1.8 MG/DL (1.3-2.1); POTASSIUM 3.8 mmol/L (3.5-5.1)
[2020-09-25 08:13] VITALS: BP 133/78
[2020-09-25] MEDS: METOPROLOL TARTRATE 25 MG TAB PO SCH (08:48)
[2020-09-25] MEDS: LISINOPRIL 20 MG TAB PO SCH (08:48)
[2020-09-25 08:53] VITALS: BP 133/78
[2020-09-25] MEDS ORDERED: ASPIRIN 81 MG ENTERIC COATED PO SCH (09:00)
[2020-09-25 11:43] VITALS: BP 91/70
[2020-09-25] MEDS ORDERED: CLOPIDOGREL75 MG PO (13:14)
[2020-09-25] MEDS ORDERED: ASPIRIN81 MG PO (13:14)
[2020-09-25] MEDS ORDERED: METOPROLOL SUCC25 MG PO (13:15)
[2020-09-25] MEDS ORDERED: ATORVASTATIN CA20 MG PO (13:16)
[2020-09-25] MEDS ORDERED: LISINOPRIL10 MG PO (13:17)
== END 2020-09-25 13:55 | disposition home or self-care (01) | DRG 246 ==
LOC: ER 11:20 → ERHOLD 13:52 → MED/SURG2 22:10
PROVIDERS: ADMIT Internal Medicine; ATTEND Internal Medicine
PROC: 027036Z Dilation of Coronary Artery, One Artery with Three Drug-eluting Intraluminal Devices, Percutaneous Approach (ICD-10-PCS; principal; 2020-09-24)
PROC: 4A023N7 Measurement of Cardiac Sampling and Pressure, Left Heart, Percutaneous Approach (ICD-10-PCS; 2020-09-24)
PROC: B2111ZZ Fluoroscopy of Multiple Coronary Arteries using Low Osmolar Contrast (ICD-10-PCS; 2020-09-24)
PROC: B2151ZZ Fluoroscopy of Left Heart using Low Osmolar Contrast (ICD-10-PCS; 2020-09-24)
DX: I13.0 Hypertensive heart and chronic kidney disease with heart failure and stage 1 through stage 4 chronic kidney disease, or unspecified chronic kidney disease (principal); J96.01 Acute respiratory failure with hypoxia; I50.23 Acute on chronic systolic (congestive) heart failure; E11.22 Type 2 diabetes mellitus with diabetic chronic kidney disease; N18.30 Chronic kidney disease, stage 3 unspecified; F41.9 Anxiety disorder, unspecified; Z82.49 Family history of ischemic heart disease and other diseases of the circulatory system; E66.9 Obesity, unspecified; Z68.31 Body mass index [BMI] 31.0-31.9, adult; E78.5 Hyperlipidemia, unspecified; I44.7 Left bundle-branch block, unspecified; Z79.82 Long term (current) use of aspirin; I25.10 Atherosclerotic heart disease of native coronary artery without angina pectoris; I25.82 Chronic total occlusion of coronary artery; Z20.822 Contact with and (suspected) exposure to COVID-19
CPT/HCPCS: 36415; 71045; 76937; 80048; 80053; 82550; 82553; 83605; 83735; 83880; 84484; 85025; 87040; 92928; 93005; 93306; 93458; 99152; 99153; 99251; 99284; C1725; C1760; C1769; C1874; C1887; J0692; J1644; J1940; J2001; J2250; J2370; J3010; J7030; Q9967; U0002

== ENCOUNTER 2020-10-03 00:57 | Inpatient (IN) | payer MEDICARE ==
[~2020-10-03] VITALS: Ht 157.5 cm; Wt 78.9 kg
[~2020-10-03 00:57] MED LIST changes: +ALBUTEROL0.63 MG/3 IH; +ALPRAZOLAM0.5 M1; +ASPIRIN81 MG PO; +ATORVASTATIN CA20 MG PO; +CLOPIDOGREL75 MG PO; +LISINOPRIL10 MG PO; +METOPROLOL SUCC25 MG PO; +ZEGERID 40 MG1 EACH
[2020-10-03 01:17] LABS: BASOPHILS # (AUTO) 0.2 (0.0-0.1); EOSINOPHILS # (AUTO) 0.4 (0.0-0.4); EOSINOPHILS % 2.9 % (0.0-6.0); HEMATOCRIT 45.6 % (34.2-44.1); HEMOGLOBIN 14.5 g/dL (12.0-16.0); LYMPHOCYTES # (AUTO) 3.9 (1.0-3.2); LYMPHOCYTES % 26.6 % (18.0-39.1); MEAN CORPUSCULAR HEMOGLOBIN 30.2 pg (28-32); MEAN CORPUSCULAR HGB CONC 31.8 g/dL (31-35); MONOCYTES # (AUTO) 0.8 (0.2-0.8); MONOCYTES % 5.4 % (4.4-11.3); NEUTROPHILS # (AUTO) 9.3 (2.1-6.9); NEUTROPHILS % 63.2 % (38.7-80.0); PLATELET COUNT 430 x10e3/uL (140-360); RED CELL DISTRIBUTION WIDTH 14.6 % (11.7-14.4)
[2020-10-03 01:31] LABS: ALBUMIN 3.3 g/dL (3.5-5.0); ALBUMIN/GLOBULIN RATIO 0.9 (0.8-2.0); ANION GAP 21.5 mmol/L (8-16); CALCIUM 8.5 mg/dL (8.4-10.2); CREATININE, SERUM 1.6 mg/dL (0.57-1.11); POTASSIUM 4.5 mmol/L (3.5-5.1)
[2020-10-03 01:37] LABS: CREATINE KINASE MB 1.2 ng/mL (0-5.0)
[2020-10-03 01:56] LABS: ABG HCO3 21 mmol/L (22-26); ABG PCO2 41 mmHg (35-45); ABG PH 7.33 (7.35-7.45); ABG PO2 270 mmHg (80-105); ABG TCO2 23
[2020-10-03] MEDS ORDERED: SODIUM CHLORIDE 0.9% 1000ML 1,000 ML IV STA ×3 (02:41→02:42)
[2020-10-03] MEDS ORDERED: CEFEPIME 1GM/NS 0.9% 50 ML 50 ML IV ONE (03:25)
[2020-10-03] MEDS ORDERED: FUROSEMIDE INJ 10 MG/ML 4 ML VIAL IV ONE (04:45)
[2020-10-03] MEDS ORDERED: AZITHROMYCIN 500MG/NS 250 ML 250 ML IV ONE (09:00)
[2020-10-03] MEDS ORDERED: CEFEPIME HCL 1 GM VIAL IV SCH (09:00)
[2020-10-03] MEDS ORDERED: FUROSEMIDE INJ 10 MG/ML 4 ML VIAL ONE (11:49)
[2020-10-03] MEDS: CLOPIDOGREL BISULFATE 75 MG TAB PO SCH (11:54)
[2020-10-03] MEDS: ASPIRIN 81 MG CHEW TAB PO SCH (11:54)
[2020-10-03] MEDS: ATORVASTATIN 20 MG TAB PO SCH (11:54)
[2020-10-03] MEDS: CEFEPIME 1GM/NS 0.9% 50 ML 50 ML IV SCH ×2 (11:54→21:04)
[2020-10-03] MEDS: DICYCLOMINE HCL 20 MG TAB PO SCH ×3 (11:54→21:04)
[2020-10-03] MEDS: LISINOPRIL 10 MG TAB PO SCH ×2 (11:54→16:16)
[2020-10-03] MEDS: METOPROLOL SUCCINATE 25 MG TAB XL PO SCH (11:55)
[2020-10-03 13:11] LABS: CREATINE KINASE MB 1.3 ng/mL (0-5.0)
[2020-10-03 18:11] VITALS: BP 107/77
[2020-10-03 20:00] VITALS: BP 127/82
[2020-10-03] MEDS ORDERED: SODIUM CHLORIDE 0.9% 250ML 250 ML ONE (21:14)
[2020-10-03 22:54] VITALS: BP 127/82
[2020-10-04] VITALS (9 sets, daily range): BP systolic 113–136; BP diastolic 70–84
[2020-10-04] MEDS: ALPRAZOLAM 0.5 MG TAB PO PRN (02:23)
[2020-10-04 05:48] LABS: BASOPHILS # (AUTO) 0.1 (0.0-0.1); EOSINOPHILS # (AUTO) 0.3 (0.0-0.4); EOSINOPHILS % 2.9 % (0.0-6.0); HEMATOCRIT 41.6 % (34.2-44.1); HEMOGLOBIN 13.4 g/dL (12.0-16.0); LYMPHOCYTES # (AUTO) 1.6 (1.0-3.2); LYMPHOCYTES % 15.9 % (18.0-39.1); MEAN CORPUSCULAR HEMOGLOBIN 29.9 pg (28-32); MEAN CORPUSCULAR HGB CONC 32.2 g/dL (31-35); MEAN CORPUSCULAR VOLUME 92.9 fL (81-99); MONOCYTES # (AUTO) 0.9 (0.2-0.8); MONOCYTES % 9.3 % (4.4-11.3); NEUTROPHILS # (AUTO) 7.1 (2.1-6.9); NEUTROPHILS % 70.3 % (38.7-80.0); PLATELET COUNT 263 x10e3/uL (140-360); RED BLOOD COUNT 4.48 x10e6/uL (3.6-5.1); RED CELL DISTRIBUTION WIDTH 14.3 % (11.7-14.4)
[2020-10-04 06:29] LABS: ALBUMIN 3.4 g/dL (3.5-5.0); ALBUMIN/GLOBULIN RATIO 1.1 (0.8-2.0); ANION GAP 13.9 mmol/L (8-16); CALCIUM 8.6 mg/dL (8.4-10.2); CREATININE, SERUM 1.39 mg/dL (0.57-1.11); POTASSIUM 3.9 mmol/L (3.5-5.1)
[2020-10-04] MEDS ORDERED: FUROSEMIDE INJ 10 MG/ML 2 ML VIAL IV SCH (09:00)
[2020-10-04] MEDS: CLOPIDOGREL BISULFATE 75 MG TAB PO SCH (09:20)
[2020-10-04] MEDS: ASPIRIN 81 MG CHEW TAB PO SCH (09:20)
[2020-10-04] MEDS: LISINOPRIL 10 MG TAB PO SCH ×2 (09:21→16:26)
[2020-10-04] MEDS: CEFEPIME 1GM/NS 0.9% 50 ML 50 ML IV SCH ×2 (09:21→20:32)
[2020-10-04] MEDS: DICYCLOMINE HCL 20 MG TAB PO SCH ×3 (09:21→20:32)
[2020-10-04] MEDS: FUROSEMIDE INJ 10 MG/ML 2 ML VIAL IV SCH ×2 (09:21→16:25)
[2020-10-04] MEDS: METOPROLOL SUCCINATE 25 MG TAB XL PO SCH (09:22)
[2020-10-04] MEDS: ATORVASTATIN 20 MG TAB PO SCH (20:32)
[2020-10-05] VITALS (9 sets, daily range): BP systolic 105–127; BP diastolic 62–84
[2020-10-05 05:24] LABS: BASOPHILS # (AUTO) 0.1 (0.0-0.1); EOSINOPHILS # (AUTO) 0.4 (0.0-0.4); EOSINOPHILS % 3.8 % (0.0-6.0); HEMATOCRIT 43.7 % (34.2-44.1); HEMOGLOBIN 14.2 g/dL (12.0-16.0); LYMPHOCYTES # (AUTO) 1.5 (1.0-3.2); LYMPHOCYTES % 15.6 % (18.0-39.1); MEAN CORPUSCULAR HEMOGLOBIN 29.8 pg (28-32); MEAN CORPUSCULAR HGB CONC 32.5 g/dL (31-35); MEAN CORPUSCULAR VOLUME 91.8 fL (81-99); MONOCYTES # (AUTO) 0.8 (0.2-0.8); MONOCYTES % 8.4 % (4.4-11.3); NEUTROPHILS # (AUTO) 6.6 (2.1-6.9); NEUTROPHILS % 70.7 % (38.7-80.0); PLATELET COUNT 268 x10e3/uL (140-360); RED BLOOD COUNT 4.76 x10e6/uL (3.6-5.1)
[2020-10-05 05:45] LABS: ALBUMIN 3.4 g/dL (3.5-5.0); ALBUMIN/GLOBULIN RATIO 1.1 (0.8-2.0); ANION GAP 13.6 mmol/L (8-16); CALCIUM 8.8 mg/dL (8.4-10.2); CREATININE, SERUM 1.26 mg/dL (0.57-1.11); MAGNESIUM 1.3 MG/DL (1.3-2.1); POTASSIUM 3.6 mmol/L (3.5-5.1)
[2020-10-05] MEDS: DICYCLOMINE HCL 20 MG TAB PO SCH ×3 (08:56→21:14)
[2020-10-05] MEDS: CLOPIDOGREL BISULFATE 75 MG TAB PO SCH (08:56)
[2020-10-05] MEDS: ASPIRIN 81 MG CHEW TAB PO SCH (08:56)
[2020-10-05] MEDS: CEFEPIME 1GM/NS 0.9% 50 ML 50 ML IV SCH ×2 (08:57→21:14)
[2020-10-05] MEDS: LISINOPRIL 10 MG TAB PO SCH ×2 (08:57→17:14)
[2020-10-05] MEDS: METOPROLOL SUCCINATE 25 MG TAB XL PO SCH (08:57)
[2020-10-05] MEDS: FUROSEMIDE INJ 10 MG/ML 2 ML VIAL IV SCH ×2 (08:58→17:13)
[2020-10-05] MEDS: ATORVASTATIN 20 MG TAB PO SCH (21:14)
[2020-10-05] MEDS: ALPRAZOLAM 0.5 MG TAB PO PRN (22:13)
[2020-10-06 00:16] VITALS: BP 123/66
[2020-10-06 04:00] VITALS: BP_SYST 123; BP_SYST 91; BP_DIAS 57; BP_DIAS 76
[2020-10-06 07:37] VITALS: BP 141/83
[2020-10-06 07:50] VITALS: BP 141/83
[2020-10-06] MEDS: DICYCLOMINE HCL 20 MG TAB PO SCH ×2 (08:43→14:53)
[2020-10-06] MEDS: FUROSEMIDE INJ 10 MG/ML 2 ML VIAL IV SCH ×2 (08:43→15:24)
[2020-10-06] MEDS: CLOPIDOGREL BISULFATE 75 MG TAB PO SCH (08:43)
[2020-10-06] MEDS: CEFEPIME 1GM/NS 0.9% 50 ML 50 ML IV SCH (08:43)
[2020-10-06] MEDS: ASPIRIN 81 MG CHEW TAB PO SCH (08:43)
[2020-10-06] MEDS: LISINOPRIL 10 MG TAB PO SCH ×2 (08:44→15:24)
[2020-10-06] MEDS: METOPROLOL SUCCINATE 25 MG TAB XL PO SCH (08:44)
[2020-10-06 11:16] VITALS: BP 126/84
[2020-10-06 15:19] VITALS: BP 116/69
== END 2020-10-06 15:53 | disposition home or self-care (01) | DRG 871 ==
LOC: ER 01:14 → ERHOLD 03:24 → MED/SURG2 17:56
PROVIDERS: ADMIT Internal Medicine; ATTEND Internal Medicine
DX: A41.9 Sepsis, unspecified organism (principal); I50.23 Acute on chronic systolic (congestive) heart failure; J96.00 Acute respiratory failure, unspecified whether with hypoxia or hypercapnia; J18.0 Bronchopneumonia, unspecified organism; R65.21 Severe sepsis with septic shock; I13.0 Hypertensive heart and chronic kidney disease with heart failure and stage 1 through stage 4 chronic kidney disease, or unspecified chronic kidney disease; N17.9 Acute kidney failure, unspecified; N18.30 Chronic kidney disease, stage 3 unspecified; K21.9 Gastro-esophageal reflux disease without esophagitis; E78.5 Hyperlipidemia, unspecified; F41.9 Anxiety disorder, unspecified; F32.9 Major depressive disorder, single episode, unspecified; Z88.5 Allergy status to narcotic agent; E66.01 Morbid (severe) obesity due to excess calories; Z95.5 Presence of coronary angioplasty implant and graft; Z68.31 Body mass index [BMI] 31.0-31.9, adult; I25.10 Atherosclerotic heart disease of native coronary artery without angina pectoris; Z20.822 Contact with and (suspected) exposure to COVID-19
CPT/HCPCS: 36415; 36600; 51700; 71045; 80053; 82550; 82553; 82805; 83605; 83735; 83880; 84484; 85025; 87040; 93005; 94660; 99251; 99285; J0456; J0692; J1940; J7030; J7050; U0002

== ENCOUNTER 2020-11-25 06:02 | Observation (INO) | payer MEDICARE ==
[2020-11-22 14:10] LABS: BASOPHILS # (AUTO) 0.1 (0.0-0.1); BASOPHILS % 0.6 % (0.0-1.0); EOSINOPHILS % 0.2 % (0.0-6.0); HEMATOCRIT 46.2 % (34.2-44.1); HEMOGLOBIN 15.6 g/dL (12.0-16.0); LYMPHOCYTES # (AUTO) 2.2 (1.0-3.2); MEAN CORPUSCULAR HEMOGLOBIN 30.4 pg (28-32); MEAN CORPUSCULAR HGB CONC 33.8 g/dL (31-35); MEAN CORPUSCULAR VOLUME 89.9 fL (81-99); MONOCYTES # (AUTO) 0.9 (0.2-0.8); MONOCYTES % 6.1 % (4.4-11.3); NEUTROPHILS # (AUTO) 10.7 (2.1-6.9); NEUTROPHILS % 76.5 % (38.7-80.0); PLATELET COUNT 315 x10e3/uL (140-360); RED BLOOD COUNT 5.14 x10e6/uL (3.6-5.1); RED CELL DISTRIBUTION WIDTH 13.1 % (11.7-14.4)
[2020-11-22 14:29] LABS: INR 0.94; PROTHROMBIN TIME 13.1 seconds (11.9-14.5)
[2020-11-22 14:33] LABS: ALBUMIN 4.1 g/dL (3.5-5.0); ALBUMIN/GLOBULIN RATIO 1.1 (0.8-2.0); ANION GAP 16.7 mmol/L (8-16); CALCIUM 9.9 mg/dL (8.4-10.2); CREATININE, SERUM 1.7 mg/dL (0.57-1.11); POTASSIUM 4.7 mmol/L (3.5-5.1)
[2020-11-25] VITALS (14 sets, daily range): BP systolic 107–154; BP diastolic 60–88
[~2020-11-25] VITALS: Ht 154.9 cm; Wt 74.4 kg
[2020-11-25] MEDS ORDERED: FUROSEMIDE40 MG PO (07:08)
[2020-11-25] MEDS ORDERED: PANTOPRAZOLE SO40 MG PO (07:08)
[2020-11-25] MEDS ORDERED: NITROGLYCERIN 400 MCG/SPRAY 4.9 GM BTL ONE (07:20)
[2020-11-25] MEDS ORDERED: MIDAZOLAM HCL 2 MG/2 ML VIAL ONE (07:20)
[2020-11-25] MEDS ORDERED: HEPARIN SOD (PORCINE) 1000 UNIT/ML 30ML ONE (07:20)
[2020-11-25] MEDS ORDERED: VERAPAMIL HCL 2.5 MG/ML 2 ML VIAL ONE (07:20)
[2020-11-25] MEDS ORDERED: IOPAMIDOL 370 MG/ML 200 ML INFUS..BTL INJ ONE ×2 (07:21→10:56)
[2020-11-25] MEDS ORDERED: SODIUM CHLORIDE 0.9% 1000ML 1,000 ML ONE (07:21)
[2020-11-25] MEDS ORDERED: LIDOCAINE HCL 2% LOCAL 20 ML VIAL ONE (07:21)
[2020-11-25] MEDS ORDERED: HEPARIN SOD/SOD CHLORIDE 2,000 ML ONE (07:21)
[2020-11-25] MEDS ORDERED: FENTANYL CITRATE/PF 100MCG/2 ML INJ ONE (07:21)
[2020-11-25] MEDS ORDERED: ASPIRIN 325 MG TAB ONE (08:56)
[2020-11-25] MEDS ORDERED: CLOPIDOGREL BISULFATE 75 MG TAB ONE ×2 (08:56→09:44)
[2020-11-25] MEDS ORDERED: ALPRAZOLAM 0.5 MG TAB ONE (10:16)
[2020-11-25] MEDS ORDERED: ALBUTEROL SULF 0.083% NEB SOLN 3 ML NEB NEB PRN (12:00)
[2020-11-25] MEDS: ALPRAZOLAM 0.5 MG TAB PO SCH ×2 (15:07→21:16)
[2020-11-25] MEDS: DICYCLOMINE HCL 20 MG TAB PO SCH ×2 (15:07→21:16)
[2020-11-25] MEDS: METOPROLOL SUCCINATE 25 MG TAB XL PO SCH (16:34)
[2020-11-25] MEDS: LISINOPRIL 10 MG TAB PO SCH (16:34)
[2020-11-25] MEDS ORDERED: ATORVASTATIN 20 MG TAB PO SCH (21:00)
[2020-11-26] VITALS: BP 112/65
[2020-11-26 04:00] VITALS: BP 106/63
[2020-11-26] MEDS ORDERED: PANTOPRAZOLE SOD 40 MG TABEC PO SCH (07:30)
[2020-11-26 07:56] VITALS: BP 118/63
[2020-11-26] MEDS: DICYCLOMINE HCL 20 MG TAB PO SCH (08:52)
[2020-11-26] MEDS: METOPROLOL SUCCINATE 25 MG TAB XL PO SCH (08:53)
[2020-11-26] MEDS: ALPRAZOLAM 0.5 MG TAB PO SCH (08:55)
[2020-11-26 09:00] VITALS: BP 118/63
[2020-11-26] MEDS: LISINOPRIL 10 MG TAB PO SCH (09:00)
[2020-11-26] MEDS ORDERED: FUROSEMIDE 40 MG TAB PO SCH (09:00)
[2020-11-26] MEDS ORDERED: ASPIRIN 81 MG CHEW TAB PO SCH (09:00)
[2020-11-26] MEDS ORDERED: CLOPIDOGREL BISULFATE 75 MG TAB PO SCH (09:00)
[2020-11-26 09:03] LABS: BASOPHILS # (AUTO) 0.1 (0.0-0.1); BASOPHILS % 0.6 % (0.0-1.0); EOSINOPHILS # (AUTO) 0.2 (0.0-0.4); EOSINOPHILS % 1.5 % (0.0-6.0); HEMATOCRIT 38.2 % (34.2-44.1); HEMOGLOBIN 12.7 g/dL (12.0-16.0); LYMPHOCYTES # (AUTO) 1.1 (1.0-3.2); LYMPHOCYTES % 10.1 % (18.0-39.1); MEAN CORPUSCULAR HEMOGLOBIN 30.5 pg (28-32); MEAN CORPUSCULAR HGB CONC 33.2 g/dL (31-35); MEAN CORPUSCULAR VOLUME 91.8 fL (81-99); MONOCYTES # (AUTO) 0.8 (0.2-0.8); MONOCYTES % 7.2 % (4.4-11.3); NEUTROPHILS # (AUTO) 8.7 (2.1-6.9); NEUTROPHILS % 80.2 % (38.7-80.0); PLATELET COUNT 215 x10e3/uL (140-360); RED BLOOD COUNT 4.16 x10e6/uL (3.6-5.1); RED CELL DISTRIBUTION WIDTH 13.2 % (11.7-14.4)
[2020-11-26 09:18] LABS: ANION GAP 11.5 mmol/L (8-16); CALCIUM 9.2 mg/dL (8.4-10.2); CREATININE, SERUM 1.3 mg/dL (0.57-1.11); POTASSIUM 4.5 mmol/L (3.5-5.1)
[2020-11-26 12:10] VITALS: BP 117/64
== END 2020-11-26 14:25 | disposition home or self-care (01) ==
LOC: CATH LAB 06:02 → CATH LAB V 09:35 → MED/SURG 11:52
PROVIDERS: ADMIT Internal Medicine Cardiovascular Disease; ATTEND Internal Medicine Cardiovascular Disease
DX: I25.110 Atherosclerotic heart disease of native coronary artery with unstable angina pectoris (principal); I11.0 Hypertensive heart disease with heart failure; I50.22 Chronic systolic (congestive) heart failure; Z20.822 Contact with and (suspected) exposure to COVID-19; Z01.818 Encounter for other preprocedural examination; I25.82 Chronic total occlusion of coronary artery; E78.5 Hyperlipidemia, unspecified
CPT/HCPCS: 76937; 93454; C9600; C9607; 36415; 80048; 80053; 85025; 85610; 92928; 92929; 99152; 99153; C1725; C1769; C1874; C1887; G0378; J1644; J2001; J2250; J3010; J7030; Q9967; U0002

== ENCOUNTER → 2021-04-06 | Day surgery (SDC) | payer MEDICARE ==
[2021-04-01 10:38] LABS: BASOPHILS # (AUTO) 0.1 (0.0-0.1); BASOPHILS % 0.9 % (0.0-1.0); EOSINOPHILS # (AUTO) 0.1 (0.0-0.4); EOSINOPHILS % 0.9 % (0.0-6.0); HEMATOCRIT 47.2 % (34.2-44.1); HEMOGLOBIN 15.6 g/dL (12.0-16.0); LYMPHOCYTES # (AUTO) 2.4 (1.0-3.2); LYMPHOCYTES % 20.7 % (18.0-39.1); MEAN CORPUSCULAR HEMOGLOBIN 30.5 pg (28-32); MEAN CORPUSCULAR HGB CONC 33.1 g/dL (31-35); MEAN CORPUSCULAR VOLUME 92.2 fL (81-99); MONOCYTES # (AUTO) 0.8 (0.2-0.8); MONOCYTES % 6.7 % (4.4-11.3); NEUTROPHILS # (AUTO) 8.1 (2.1-6.9); NEUTROPHILS % 70.2 % (38.7-80.0); PLATELET COUNT 311 x10e3/uL (140-360); RED BLOOD COUNT 5.12 x10e6/uL (3.6-5.1); RED CELL DISTRIBUTION WIDTH 12.7 % (11.7-14.4)
[2021-04-01 10:58] LABS: ANION GAP 18.3 mmol/L (8-16); CREATININE, SERUM 1.44 mg/dL (0.57-1.11); POTASSIUM 4.3 mmol/L (3.5-5.1)
[2021-04-01 11:02] LABS: INR 0.94; PROTHROMBIN TIME 13.1 seconds (11.9-14.5)
[2021-04-06] VITALS (18 sets, daily range): BP systolic 104–156; BP diastolic 54–89
[~2021-04-06] VITALS: Ht 167.6 cm; Wt 72.6 kg
[~2021-04-06] MED LIST changes: -ALPRAZOLAM0.5 M1; +ALPRAZOLAM0.5 M1 PO; +FENTANYL CITRATE/PF 100MCG/2 ML INJ ONE; +FUROSEMIDE40 MG PO; +GENTAMICIN SULFATE 40 MG/ML 2 ML VIAL ONE; +LIDOCAINE HCL 2% LOCAL 20 ML VIAL ONE; +MIDAZOLAM HCL 2 MG/2 ML VIAL ONE; +PANTOPRAZOLE SO40 MG PO; +SODIUM CHLORIDE 0.9% 1000ML 2,000 ML ONE; +SODIUM CHLORIDE 0.9% 250ML 250 ML ONE; +SODIUM CHLORIDE 0.9% 500ML 500 ML ONE; +TYLENOL325 MG PO; +Vancomycin IV 1 GM VIAL ONE
== END | disposition home or self-care (01) ==
LOC: CATH LAB 10:40
PROVIDERS: ATTEND Internal Medicine
DX: I25.5 Ischemic cardiomyopathy (principal); I50.42 Chronic combined systolic (congestive) and diastolic (congestive) heart failure; I25.10 Atherosclerotic heart disease of native coronary artery without angina pectoris; I25.2 Old myocardial infarction; I44.7 Left bundle-branch block, unspecified; Z79.02 Long term (current) use of antithrombotics/antiplatelets
CPT/HCPCS: 33208; 33225; 36415; 71045; 80048; 85025; 85610; C1769 ×2; C1777; C1882; C1898; C1900; J1580; J2001; J2250; J3010; J3370; J7030; J7040; J7050; 33249; 99152; 99153

== ENCOUNTER 2021-09-07 07:58 | Inpatient (IN) | payer MEDICARE ==
[~2021-09-07] VITALS: Ht 167.6 cm; Wt 75.9 kg
[~2021-09-07 07:58] MED LIST changes: -FENTANYL CITRATE/PF 100MCG/2 ML INJ ONE; -GENTAMICIN SULFATE 40 MG/ML 2 ML VIAL ONE; -LIDOCAINE HCL 2% LOCAL 20 ML VIAL ONE; -MIDAZOLAM HCL 2 MG/2 ML VIAL ONE; -SODIUM CHLORIDE 0.9% 1000ML 2,000 ML ONE; -SODIUM CHLORIDE 0.9% 250ML 250 ML ONE; -SODIUM CHLORIDE 0.9% 500ML 500 ML ONE; -Vancomycin IV 1 GM VIAL ONE
[2021-09-07 08:27] LABS: BASOPHILS # (AUTO) 0.1 (0.0-0.1); BASOPHILS % 0.6 % (0.0-1.0); EOSINOPHILS # (AUTO) 0.3 (0.0-0.4); EOSINOPHILS % 1.6 % (0.0-6.0); HEMATOCRIT 39.3 % (34.2-44.1); HEMOGLOBIN 13.2 g/dL (12.0-16.0); LYMPHOCYTES % 16.6 % (18.0-39.1); MEAN CORPUSCULAR HEMOGLOBIN 30.3 pg (28-32); MEAN CORPUSCULAR HGB CONC 33.6 g/dL (31-35); MEAN CORPUSCULAR VOLUME 90.1 fL (81-99); MONOCYTES # (AUTO) 1.4 (0.2-0.8); MONOCYTES % 7.6 % (4.4-11.3); NEUTROPHILS # (AUTO) 13.1 (2.1-6.9); NEUTROPHILS % 72.8 % (38.7-80.0); PLATELET COUNT 271 x10e3/uL (140-360); RED BLOOD COUNT 4.36 x10e6/uL (3.6-5.1); RED CELL DISTRIBUTION WIDTH 12.8 % (11.7-14.4)
[2021-09-07 08:58] LABS: ALBUMIN 3.2 g/dL (3.5-5.0); ALKALINE PHOSPHATASE 71 IU/L (40-150); ANION GAP 19.2 mmol/L (8-16); BLOOD UREA NITROGEN 27 mg/dL (7-26); BUN/CREATININE RATIO 19 (6-25); CALCIUM 7.8 mg/dL (8.4-10.2); CARBON DIOXIDE 18 mmol/L (22-29); CHLORIDE 106 mmol/L (98-107); CREATINE KINASE 18 IU/L (29-168); CREATININE, SERUM 1.43 mg/dL (0.57-1.11); EST GLOMERULAR FILTRATION RATE 35 ML/MIN (60-); GLUCOSE 115 mg/dL (74-118); POTASSIUM 3.2 mmol/L (3.5-5.1); SODIUM 140 mmol/L (136-145)
[2021-09-07 09:08] LABS: INR 1.17; PROTHROMBIN TIME 15.9 seconds (11.9-14.5)
[2021-09-07 09:09] LABS: PARTIAL THROMBOPLASTIN TIME 24.6 seconds (23.8-35.5)
[2021-09-07] MEDS ORDERED: SODIUM CHLORIDE 0.9% 1000ML 1,000 ML IV STA (09:11)
[2021-09-07] MEDS ORDERED: ONDANSETRON HCL INJ 2MG/ML 2ML 2 MG/ML VIAL IV STA (09:11)
[2021-09-07 09:20] LABS: ALANINE AMINOTRANSFERASE < 6 IU/L (0-55)
[2021-09-07 09:23] LABS: CLARITY,URINE SL CLOUDY (CLEAR); COLOR,URINE YELLOW (YELLOW); KETONES,URINE 1+ (NEGATIVE); LEUKOCYTE ESTERASE ,URINE SMALL (NEGATIVE); NITRITE,URINE POSITIVE (NEGATIVE); PROTEIN,URINE DIPSTICK 1+ (NEGATIVE); URINE UROBILINOGEN 0.2 mg/dL (0.2 - 1)
[2021-09-07 09:24] LABS: BACTERIA,URINE MODERATE /HPF; EPITHELIAL CELLS,URINE MODERATE /LPF; RBC,URINE 0-5 /HPF (0-5)
[2021-09-07] MEDS ORDERED: METRONIDAZOLE 500MG/NS 100ML 100 ML IV STA (10:17)
[2021-09-07] MEDS ORDERED: CEFTRIAXONE 1 GM in SODIUM CHLORIDE 0.9% 50ML 50 ML IV ONE (10:30)
[2021-09-07] MEDS ORDERED: METRONIDAZOLE 500 MG TAB PO ONE (11:00)
[2021-09-07 11:42] VITALS: BP 124/74
[2021-09-07 12:00] VITALS: BP 124/74
[2021-09-07] MEDS: SODIUM CHLORIDE 0.9% 1000ML 1,000 ML IV SCH ×2 (12:31→20:34)
[2021-09-07] MEDS ORDERED: LOMOTIL TABLET1 EACH PO (12:49)
[2021-09-07] MEDS ORDERED: ZOFRAN4 MG PO (12:49)
[2021-09-07] MEDS ORDERED: OXYBUTYNIN CHLOR5 MG PO (12:49)
[2021-09-07] MEDS ORDERED: METRONIDAZOLE500 MG PO (12:49)
[2021-09-07 13:01] VITALS: BP 124/74
[2021-09-07] MEDS: ALPRAZOLAM 0.5 MG TAB PO PRN (16:00)
[2021-09-07 16:01] VITALS: BP 130/67
[2021-09-07 20:00] VITALS: BP 121/64
[2021-09-07] MEDS ORDERED: CHOLESTYRAMINE 4 GM PACKET PO STA (23:19)
[2021-09-07] MEDS ORDERED: DICYCLOMINE HCL 20 MG TAB PO ONE (23:30)
[2021-09-08] VITALS (8 sets, daily range): BP systolic 133–156; BP diastolic 64–82
[2021-09-08] MEDS: METRONIDAZOLE 500 MG TAB PO SCH ×5 (00:45→23:33)
[2021-09-08] MEDS: ALPRAZOLAM 0.5 MG TAB PO PRN ×2 (01:00→09:15)
[2021-09-08] MEDS: SODIUM CHLORIDE 0.9% 1000ML 1,000 ML IV SCH ×2 (03:00→16:10)
[2021-09-08 06:28] LABS: BASOPHILS # (AUTO) 0.1 (0.0-0.1); BASOPHILS % 0.6 % (0.0-1.0); EOSINOPHILS # (AUTO) 0.2 (0.0-0.4); EOSINOPHILS % 2.2 % (0.0-6.0); HEMATOCRIT 34.2 % (34.2-44.1); HEMOGLOBIN 11.6 g/dL (12.0-16.0); LYMPHOCYTES # (AUTO) 1.4 (1.0-3.2); LYMPHOCYTES % 12.9 % (18.0-39.1); MEAN CORPUSCULAR HEMOGLOBIN 30.1 pg (28-32); MEAN CORPUSCULAR HGB CONC 33.9 g/dL (31-35); MEAN CORPUSCULAR VOLUME 88.8 fL (81-99); MONOCYTES # (AUTO) 0.8 (0.2-0.8); MONOCYTES % 7.1 % (4.4-11.3); NEUTROPHILS # (AUTO) 8.2 (2.1-6.9); NEUTROPHILS % 76.4 % (38.7-80.0); PLATELET COUNT 210 x10e3/uL (140-360); RED BLOOD COUNT 3.85 x10e6/uL (3.6-5.1)
[2021-09-08 07:06] LABS: ALBUMIN 2.7 g/dL (3.5-5.0); ALBUMIN/GLOBULIN RATIO 1.1 (0.8-2.0); ALKALINE PHOSPHATASE 66 IU/L (40-150); ANION GAP 14.3 mmol/L (8-16); BLOOD UREA NITROGEN 14 mg/dL (7-26); BUN/CREATININE RATIO 14 (6-25); CALCIUM 7.3 mg/dL (8.4-10.2); CARBON DIOXIDE 18 mmol/L (22-29); CHLORIDE 114 mmol/L (98-107); CREATININE, SERUM 1.02 mg/dL (0.57-1.11); EST GLOMERULAR FILTRATION RATE 52 ML/MIN (60-); GLUCOSE 93 mg/dL (74-118); POTASSIUM 3.3 mmol/L (3.5-5.1); SODIUM 143 mmol/L (136-145)
[2021-09-08 07:09] LABS: ALANINE AMINOTRANSFERASE < 6 IU/L (0-55)
[2021-09-08 07:12] LABS: MAGNESIUM 0.8 MG/DL (1.3-2.1)
[2021-09-08] MEDS ORDERED: CHOLESTYRAMINE 4 GM PACKET PO SCH (09:00)
[2021-09-08] MEDS ORDERED: CEFTRIAXONE 1 GM in SODIUM CHLORIDE 0.9% 50ML 50 ML IV SCH (09:00)
[2021-09-08] MEDS: METOPROLOL SUCCINATE 25 MG TAB XL PO SCH (09:14)
[2021-09-08] MEDS ORDERED: MAGNESIUM SULFATE 2GM/50ML 50 ML IV ONE ×2 (09:30→11:45)
[2021-09-08] MEDS: ONDANSETRON HCL INJ 2MG/ML 2ML 2 MG/ML VIAL IV PRN ×3 (09:31→19:47)
[2021-09-08] MEDS: DULOXETINE HCL 30 MG DELAYED RELEASE PO SCH ×3 (11:00→21:00)
[2021-09-08 11:07] LABS: WBC,FECAL (FECAL LACTOFERRIN) POSITIVE (NEGATIVE)
[2021-09-08] MEDS: DICYCLOMINE HCL 20 MG TAB PO SCH ×4 (13:18→21:00)
[2021-09-08] MEDS: CEFTRIAXONE 1 GM in SODIUM CHLORIDE 0.9% 50ML 50 ML IV SCH (15:40)
[2021-09-08] MEDS: ATORVASTATIN 20 MG TAB PO SCH (21:00)
[2021-09-08] MEDS: CHOLESTYRAMINE 4 GM PACKET PO SCH (22:15)
[2021-09-08] MEDS ORDERED: DIPHENOXYLATE/ATROPINE TAB PO ONE (22:30)
[2021-09-09] VITALS (9 sets, daily range): BP systolic 131–158; BP diastolic 59–84
[2021-09-09] MEDS: SODIUM CHLORIDE 0.9% 1000ML 1,000 ML IV SCH ×4 (00:26→18:04)
[2021-09-09] MEDS: METRONIDAZOLE 500 MG TAB PO SCH ×4 (06:00→23:15)
[2021-09-09] MEDS: CEFTRIAXONE 1 GM in SODIUM CHLORIDE 0.9% 50ML 50 ML IV SCH (08:36)
[2021-09-09] MEDS: DICYCLOMINE HCL 20 MG TAB PO SCH ×4 (08:36→21:30)
[2021-09-09] MEDS: DULOXETINE HCL 30 MG DELAYED RELEASE PO SCH ×3 (08:36→21:30)
[2021-09-09] MEDS: CHOLESTYRAMINE 4 GM PACKET PO SCH ×3 (08:36→17:00)
[2021-09-09] MEDS: METOPROLOL SUCCINATE 25 MG TAB XL PO SCH (08:37)
[2021-09-09 14:47] LABS: C DIFFICILE TOXIN A&B AMP PROB **POSITIVE** (NEGATIVE)
[2021-09-09] MEDS: ONDANSETRON HCL INJ 2MG/ML 2ML 2 MG/ML VIAL IV PRN (17:45)
[2021-09-09] MEDS: ATORVASTATIN 20 MG TAB PO SCH (21:30)
[2021-09-10] VITALS (8 sets, daily range): BP systolic 132–161; BP diastolic 74–87
[2021-09-10] MEDS ORDERED: VANCOMYCIN 250MG/5ML ORAL SOLN PO STA ×2 (00:49→01:22)
[2021-09-10] MEDS: SODIUM CHLORIDE 0.9% 1000ML 1,000 ML IV SCH ×4 (02:14→23:38)
[2021-09-10] MEDS ORDERED: VANCOMYCIN 250MG/5ML ORAL SOLN PO SCH ×2 (06:00→09:00)
[2021-09-10] MEDS: METRONIDAZOLE 500 MG TAB PO SCH ×4 (06:05→23:38)
[2021-09-10 06:49] LABS: BASOPHILS # (AUTO) 0.1 (0.0-0.1); BASOPHILS % 0.7 % (0.0-1.0); EOSINOPHILS # (AUTO) 0.3 (0.0-0.4); EOSINOPHILS % 2.1 % (0.0-6.0); HEMATOCRIT 32.7 % (34.2-44.1); LYMPHOCYTES # (AUTO) 1.5 (1.0-3.2); LYMPHOCYTES % 12.3 % (18.0-39.1); MEAN CORPUSCULAR HGB CONC 33.6 g/dL (31-35); MEAN CORPUSCULAR VOLUME 89.1 fL (81-99); MONOCYTES # (AUTO) 0.9 (0.2-0.8); MONOCYTES % 7.3 % (4.4-11.3); NEUTROPHILS % 76.4 % (38.7-80.0); PLATELET COUNT 231 x10e3/uL (140-360); RED BLOOD COUNT 3.67 x10e6/uL (3.6-5.1); RED CELL DISTRIBUTION WIDTH 13.2 % (11.7-14.4)
[2021-09-10 07:10] LABS: ALBUMIN 2.7 g/dL (3.5-5.0); ALBUMIN/GLOBULIN RATIO 1.1 (0.8-2.0); ALKALINE PHOSPHATASE 62 IU/L (40-150); ANION GAP 11.1 mmol/L (8-16); BLOOD UREA NITROGEN < 5 mg/dL (7-26); CARBON DIOXIDE 17 mmol/L (22-29); CHLORIDE 116 mmol/L (98-107); CREATININE, SERUM 0.81 mg/dL (0.57-1.11); EST GLOMERULAR FILTRATION RATE 67 ML/MIN (60-); GLUCOSE 103 mg/dL (74-118); POTASSIUM 3.1 mmol/L (3.5-5.1); SODIUM 141 mmol/L (136-145)
[2021-09-10 07:18] LABS: ALANINE AMINOTRANSFERASE < 6 IU/L (0-55); BUN/CREATININE RATIO 6 (6-25)
[2021-09-10] MEDS: ONDANSETRON HCL INJ 2MG/ML 2ML 2 MG/ML VIAL IV PRN (08:04)
[2021-09-10] MEDS ORDERED: POTASSIUM CITRATE ER 10 MEQ TAB PO NR (09:30)
[2021-09-10] MEDS: DICYCLOMINE HCL 20 MG TAB PO SCH ×4 (09:43→21:11)
[2021-09-10] MEDS: DULOXETINE HCL 30 MG DELAYED RELEASE PO SCH ×3 (09:43→21:11)
[2021-09-10] MEDS: METOPROLOL SUCCINATE 25 MG TAB XL PO SCH (09:44)
[2021-09-10] MEDS: VANCOMYCIN HCL 125 MG CAPSULE PO SCH ×3 (12:35→23:38)
[2021-09-10] MEDS: ATORVASTATIN 20 MG TAB PO SCH (21:11)
[2021-09-10] MEDS: ALPRAZOLAM 0.5 MG TAB PO PRN (23:38)
[2021-09-11] VITALS (8 sets, daily range): BP systolic 126–154; BP diastolic 67–79
[2021-09-11 05:48] LABS: BASOPHILS # (AUTO) 0.1 (0.0-0.1); BASOPHILS % 0.8 % (0.0-1.0); EOSINOPHILS # (AUTO) 0.3 (0.0-0.4); EOSINOPHILS % 2.5 % (0.0-6.0); HEMATOCRIT 32.8 % (34.2-44.1); HEMOGLOBIN 11.1 g/dL (12.0-16.0); LYMPHOCYTES # (AUTO) 1.4 (1.0-3.2); LYMPHOCYTES % 13.9 % (18.0-39.1); MEAN CORPUSCULAR HEMOGLOBIN 29.9 pg (28-32); MEAN CORPUSCULAR HGB CONC 33.8 g/dL (31-35); MEAN CORPUSCULAR VOLUME 88.4 fL (81-99); MONOCYTES # (AUTO) 0.7 (0.2-0.8); NEUTROPHILS # (AUTO) 7.7 (2.1-6.9); NEUTROPHILS % 74.5 % (38.7-80.0); PLATELET COUNT 244 x10e3/uL (140-360); RED BLOOD COUNT 3.71 x10e6/uL (3.6-5.1); RED CELL DISTRIBUTION WIDTH 13.2 % (11.7-14.4)
[2021-09-11 06:09] LABS: ANION GAP 12.2 mmol/L (8-16); BLOOD UREA NITROGEN < 5 mg/dL (7-26); CALCIUM 7.8 mg/dL (8.4-10.2); CARBON DIOXIDE 17 mmol/L (22-29); CHLORIDE 113 mmol/L (98-107); CREATININE, SERUM 0.75 mg/dL (0.57-1.11); EST GLOMERULAR FILTRATION RATE 73 ML/MIN (60-); GLUCOSE 83 mg/dL (74-118); POTASSIUM 3.2 mmol/L (3.5-5.1); SODIUM 139 mmol/L (136-145)
[2021-09-11 06:10] LABS: BUN/CREATININE RATIO 7 (6-25)
[2021-09-11] MEDS: VANCOMYCIN HCL 125 MG CAPSULE PO SCH ×4 (06:20→23:26)
[2021-09-11] MEDS: METRONIDAZOLE 500 MG TAB PO SCH ×4 (06:20→23:26)
[2021-09-11] MEDS: SODIUM CHLORIDE 0.9% 1000ML 1,000 ML IV SCH ×3 (09:15→23:26)
[2021-09-11] MEDS: DULOXETINE HCL 30 MG DELAYED RELEASE PO SCH ×3 (09:21→21:34)
[2021-09-11] MEDS: DICYCLOMINE HCL 20 MG TAB PO SCH ×4 (09:21→21:34)
[2021-09-11] MEDS: METOPROLOL SUCCINATE 25 MG TAB XL PO SCH (09:22)
[2021-09-11] MEDS: ALPRAZOLAM 0.5 MG TAB PO PRN (21:34)
[2021-09-11] MEDS: ATORVASTATIN 20 MG TAB PO SCH (21:34)
[2021-09-12] VITALS (8 sets, daily range): BP systolic 116–166; BP diastolic 72–85
[2021-09-12] MEDS ORDERED: MAGNESIUM SULFATE 2GM/50ML 50 ML IV ONE (03:45)
[2021-09-12] MEDS: VANCOMYCIN HCL 125 MG CAPSULE PO SCH ×4 (06:07→23:22)
[2021-09-12] MEDS: METRONIDAZOLE 500 MG TAB PO SCH ×4 (06:07→23:22)
[2021-09-12] MEDS: DULOXETINE HCL 30 MG DELAYED RELEASE PO SCH ×3 (09:13→20:32)
[2021-09-12] MEDS: DICYCLOMINE HCL 20 MG TAB PO SCH ×4 (09:13→20:32)
[2021-09-12] MEDS: METOPROLOL SUCCINATE 25 MG TAB XL PO SCH (09:13)
[2021-09-12] MEDS: SODIUM CHLORIDE 0.9% 1000ML 1,000 ML IV SCH ×2 (10:20→19:25)
[2021-09-12] MEDS: ATORVASTATIN 20 MG TAB PO SCH (20:32)
[2021-09-13] VITALS (8 sets, daily range): BP systolic 135–176; BP diastolic 79–91
[2021-09-13] MEDS: SODIUM CHLORIDE 0.9% 1000ML 1,000 ML IV SCH ×3 (04:20→20:25)
[2021-09-13] MEDS ORDERED: CLONIDINE HCL 0.1 MG TAB PO PRN (04:45)
[2021-09-13] MEDS: ONDANSETRON HCL INJ 2MG/ML 2ML 2 MG/ML VIAL IV PRN (04:55)
[2021-09-13] MEDS: METRONIDAZOLE 500 MG TAB PO SCH ×4 (05:01→23:47)
[2021-09-13] MEDS: VANCOMYCIN HCL 125 MG CAPSULE PO SCH ×4 (05:01→23:48)
[2021-09-13 08:29] LABS: ANION GAP 16.8 mmol/L (8-16); BLOOD UREA NITROGEN < 5 mg/dL (7-26); CALCIUM 8.1 mg/dL (8.4-10.2); CARBON DIOXIDE 21 mmol/L (22-29); CHLORIDE 103 mmol/L (98-107); CREATININE, SERUM 0.81 mg/dL (0.57-1.11); EST GLOMERULAR FILTRATION RATE 67 ML/MIN (60-); GLUCOSE 123 mg/dL (74-118); SODIUM 138 mmol/L (136-145)
[2021-09-13 08:34] LABS: BUN/CREATININE RATIO 6 (6-25)
[2021-09-13 08:35] LABS: POTASSIUM 2.8 mmol/L (3.5-5.1)
[2021-09-13] MEDS ORDERED: POTASSIUM CHLORIDE 20 MEQ TAB CR PO NR (09:00)
[2021-09-13] MEDS: DICYCLOMINE HCL 20 MG TAB PO SCH ×4 (09:16→20:25)
[2021-09-13] MEDS: DULOXETINE HCL 30 MG DELAYED RELEASE PO SCH ×3 (09:16→20:25)
[2021-09-13] MEDS: METOPROLOL SUCCINATE 25 MG TAB XL PO SCH (09:16)
[2021-09-13] MEDS: ATORVASTATIN 20 MG TAB PO SCH (20:25)
[2021-09-14] VITALS (7 sets, daily range): BP systolic 145–184; BP diastolic 72–92
[2021-09-14] MEDS: SODIUM CHLORIDE 0.9% 1000ML 1,000 ML IV SCH ×3 (03:27→17:19)
[2021-09-14] MEDS: VANCOMYCIN HCL 125 MG CAPSULE PO SCH ×4 (06:02→23:01)
[2021-09-14] MEDS: METRONIDAZOLE 500 MG TAB PO SCH ×4 (06:02→23:01)
[2021-09-14 06:18] LABS: BASOPHILS # (AUTO) 0.1 (0.0-0.1); BASOPHILS % 0.6 % (0.0-1.0); EOSINOPHILS # (AUTO) 0.2 (0.0-0.4); EOSINOPHILS % 1.4 % (0.0-6.0); HEMATOCRIT 37.5 % (34.2-44.1); HEMOGLOBIN 13.1 g/dL (12.0-16.0); LYMPHOCYTES # (AUTO) 1.8 (1.0-3.2); LYMPHOCYTES % 13.3 % (18.0-39.1); MEAN CORPUSCULAR HEMOGLOBIN 29.6 pg (28-32); MEAN CORPUSCULAR HGB CONC 34.9 g/dL (31-35); MEAN CORPUSCULAR VOLUME 84.8 fL (81-99); MONOCYTES # (AUTO) 0.8 (0.2-0.8); MONOCYTES % 5.9 % (4.4-11.3); NEUTROPHILS # (AUTO) 10.2 (2.1-6.9); NEUTROPHILS % 77.6 % (38.7-80.0); PLATELET COUNT 308 x10e3/uL (140-360); RED BLOOD COUNT 4.42 x10e6/uL (3.6-5.1); RED CELL DISTRIBUTION WIDTH 13.2 % (11.7-14.4)
[2021-09-14 06:38] LABS: ALANINE AMINOTRANSFERASE 6 IU/L (0-55); ALBUMIN/GLOBULIN RATIO 1.2 (0.8-2.0); ALKALINE PHOSPHATASE 65 IU/L (40-150); ANION GAP 14.6 mmol/L (8-16); BLOOD UREA NITROGEN < 5 mg/dL (7-26); CALCIUM 8.5 mg/dL (8.4-10.2); CARBON DIOXIDE 21 mmol/L (22-29); CHLORIDE 106 mmol/L (98-107); CREATININE, SERUM 0.77 mg/dL (0.57-1.11); EST GLOMERULAR FILTRATION RATE 71 ML/MIN (60-); GLUCOSE 111 mg/dL (74-118); SODIUM 139 mmol/L (136-145)
[2021-09-14 06:44] LABS: BUN/CREATININE RATIO 6 (6-25)
[2021-09-14 06:47] LABS: MAGNESIUM 1.1 MG/DL (1.3-2.1); POTASSIUM 2.6 mmol/L (3.5-5.1)
[2021-09-14] MEDS ORDERED: MAGNESIUM SULFATE 2GM/50ML 50 ML IV ONE ×2 (08:30→11:00)
[2021-09-14] MEDS ORDERED: POTASSIUM CHLORIDE 10MEQ EA PO ONE (08:30)
[2021-09-14] MEDS: DICYCLOMINE HCL 20 MG TAB PO SCH ×4 (08:37→21:04)
[2021-09-14] MEDS: DULOXETINE HCL 30 MG DELAYED RELEASE PO SCH ×3 (08:37→21:04)
[2021-09-14] MEDS: METOPROLOL SUCCINATE 25 MG TAB XL PO SCH (09:15)
[2021-09-14] MEDS ORDERED: POTASSIUM CHLORIDE 20 MEQ TAB CR PO ONE ×2 (11:00→17:00)
[2021-09-14 13:09] LABS: ANION GAP 14.1 mmol/L (8-16); BLOOD UREA NITROGEN < 5 mg/dL (7-26); BUN/CREATININE RATIO 6 (6-25); CARBON DIOXIDE 21 mmol/L (22-29); CHLORIDE 105 mmol/L (98-107); CREATININE, SERUM 0.78 mg/dL (0.57-1.11); EST GLOMERULAR FILTRATION RATE 70 ML/MIN (60-); GLUCOSE 134 mg/dL (74-118); POTASSIUM 3.1 mmol/L (3.5-5.1); SODIUM 137 mmol/L (136-145)
[2021-09-14] MEDS: ALPRAZOLAM 0.5 MG TAB PO PRN (17:47)
[2021-09-14] MEDS: ATORVASTATIN 20 MG TAB PO SCH (21:04)
[2021-09-15] VITALS: BP 162/82
[2021-09-15] MEDS: SODIUM CHLORIDE 0.9% 1000ML 1,000 ML IV SCH ×2 (01:27→10:15)
[2021-09-15 04:00] VITALS: BP 140/98
[2021-09-15 05:03] LABS: BASOPHILS # (AUTO) 0.1 (0.0-0.1); BASOPHILS % 0.5 % (0.0-1.0); EOSINOPHILS # (AUTO) 0.2 (0.0-0.4); EOSINOPHILS % 1.8 % (0.0-6.0); HEMOGLOBIN 12.7 g/dL (12.0-16.0); LYMPHOCYTES # (AUTO) 1.5 (1.0-3.2); LYMPHOCYTES % 12.9 % (18.0-39.1); MEAN CORPUSCULAR HEMOGLOBIN 29.9 pg (28-32); MEAN CORPUSCULAR HGB CONC 35.3 g/dL (31-35); MEAN CORPUSCULAR VOLUME 84.7 fL (81-99); MONOCYTES # (AUTO) 0.8 (0.2-0.8); MONOCYTES % 6.6 % (4.4-11.3); NEUTROPHILS # (AUTO) 9.1 (2.1-6.9); NEUTROPHILS % 76.7 % (38.7-80.0); PLATELET COUNT 297 x10e3/uL (140-360); RED BLOOD COUNT 4.25 x10e6/uL (3.6-5.1); RED CELL DISTRIBUTION WIDTH 13.6 % (11.7-14.4)
[2021-09-15] MEDS: VANCOMYCIN HCL 125 MG CAPSULE PO SCH ×2 (05:07→13:02)
[2021-09-15 05:35] LABS: ALBUMIN/GLOBULIN RATIO 1.3 (0.8-2.0); ALKALINE PHOSPHATASE 63 IU/L (40-150); ANION GAP 14.1 mmol/L (8-16); BLOOD UREA NITROGEN < 5 mg/dL (7-26); CALCIUM 8.1 mg/dL (8.4-10.2); CARBON DIOXIDE 22 mmol/L (22-29); CHLORIDE 107 mmol/L (98-107); CREATININE, SERUM 0.73 mg/dL (0.57-1.11); EST GLOMERULAR FILTRATION RATE 76 ML/MIN (60-); GLUCOSE 108 mg/dL (74-118); POTASSIUM 3.1 mmol/L (3.5-5.1); SODIUM 140 mmol/L (136-145)
[2021-09-15 05:42] LABS: ALANINE AMINOTRANSFERASE < 6 IU/L (0-55); BUN/CREATININE RATIO 7 (6-25)
[2021-09-15] MEDS ORDERED: POTASSIUM CHLORIDE 20 MEQ TAB CR PO ONE ×2 (06:00→13:30)
[2021-09-15 08:00] VITALS: BP 168/93
[2021-09-15] MEDS: DULOXETINE HCL 30 MG DELAYED RELEASE PO SCH (09:16)
[2021-09-15] MEDS: DICYCLOMINE HCL 20 MG TAB PO SCH ×2 (09:16→13:02)
[2021-09-15] MEDS: ALPRAZOLAM 0.5 MG TAB PO PRN (09:17)
[2021-09-15] MEDS: METOPROLOL SUCCINATE 25 MG TAB XL PO SCH (09:17)
[2021-09-15 12:00] VITALS: BP 165/90
[2021-09-15 12:48] LABS: ANION GAP 13.6 mmol/L (8-16); BLOOD UREA NITROGEN < 5 mg/dL (7-26); CALCIUM 8.3 mg/dL (8.4-10.2); CARBON DIOXIDE 23 mmol/L (22-29); CHLORIDE 107 mmol/L (98-107); CREATININE, SERUM 0.74 mg/dL (0.57-1.11); EST GLOMERULAR FILTRATION RATE 75 ML/MIN (60-); GLUCOSE 121 mg/dL (74-118); POTASSIUM 3.6 mmol/L (3.5-5.1); SODIUM 140 mmol/L (136-145)
[2021-09-15 12:49] LABS: BUN/CREATININE RATIO 7 (6-25)
[2021-09-15] MEDS ORDERED: ONDANSETRON HCL 4 MG ORAL DISINTEGRATING TAB PO PRN (14:00)
[2021-09-15] MEDS ORDERED: PANTOPRAZOLE SOD 40 MG TABEC PO SCH (21:00)
== END 2021-09-15 15:43 | disposition home or self-care (01) | DRG 872 ==
LOC: ER 08:01 → ERHOLD 10:17 → MED/SURG 11:40 → MED/SURG2 09-09 17:00
PROVIDERS: ADMIT Internal Medicine; ATTEND Internal Medicine
DX: A41.9 Sepsis, unspecified organism (principal); A04.72 Enterocolitis due to Clostridium difficile, not specified as recurrent; N39.0 Urinary tract infection, site not specified; N17.9 Acute kidney failure, unspecified; I50.22 Chronic systolic (congestive) heart failure; E83.42 Hypomagnesemia; E87.6 Hypokalemia; F41.9 Anxiety disorder, unspecified; Z20.822 Contact with and (suspected) exposure to COVID-19; I11.0 Hypertensive heart disease with heart failure; E66.9 Obesity, unspecified; Z68.27 Body mass index [BMI] 27.0-27.9, adult
CPT/HCPCS: 36415; 71045; 74176; 80048; 80053; 81001; 82550; 82553; 83630; 83735; 83880; 83993; 84484; 85025; 85610; 85730; 87045; 87177; 87328; 87493; 93005; 96361; 99251; 99284; J0696; J2405; J3475; J7030; U0002

== ENCOUNTER → 2022-05-18 | Outpatient (CLI) | payer MEDICARE ==
[~2022-05-18] MED LIST changes: +IOPAMIDOL 370 MG/ML 100 ML INFUS..BTL INJ ONE; +LOMOTIL TABLET1 EACH PO; +METRONIDAZOLE500 MG PO; +OXYBUTYNIN CHLOR5 MG PO; +SODIUM CHLORIDE 0.9% 500ML 500 ML ONE; +ZOFRAN4 MG PO
[2022-05-18 11:53] LABS: CREATININE, SERUM 1.26 mg/dL (0.57-1.11)
== END ==
LOC: CT 11:02
PROVIDERS: ATTEND Internal Medicine Gastroenterology
DX: R10.30 Lower abdominal pain, unspecified (principal)
CPT/HCPCS: 36415; 74177; 82565; 84520; 96360; J7040; Q9967